=== PATIENT | male | born 1945 | race Caucasian/White ===

== ENCOUNTER 2017-08-07 17:08 | Inpatient (IN) | payer MEDICARE, OTHER ==
[~2017-08-07] VITALS: Ht 188 cm; Wt 121.6 kg
[~2017-08-07 17:08] MED LIST: APIX5TAB PO; ATOR10TA PO; BENA40TA PO; CENTCHW3 PO; DOXA1 PO; ECOT81TA2 PO; HYDR-2768 PO; METF850T PO; METO100T PO; NIAS10004 PO; POTA-267 PO
[2017-08-07 17:30] VITALS: BP 152/84; PULSE 83; RESP 16; TEMP 97.5; O2SAT 96
[2017-08-07 19:30] VITALS: BP 146/96; PULSE 87; RESP 18; O2SAT 99
[2017-08-07] MEDS ORDERED: EMPA1TAB3 PO (20:14)
[2017-08-07] MEDS ORDERED: METO100T PO (20:14)
[2017-08-07] MEDS ORDERED: AMLO5TAB2 PO (20:14)
[2017-08-07] MEDS ORDERED: APIX5TAB PO (20:14)
[2017-08-07] MEDS ORDERED: DOXA1TAB43 PO (20:14)
[2017-08-07] MEDS ORDERED: PANT40TA3 PO (20:14)
[2017-08-07] MEDS ORDERED: HYDR12.56 PO (20:14)
[2017-08-07] MEDS ORDERED: METF850T PO (20:14)
[2017-08-07] MEDS ORDERED: ASPI-516 CHEW (20:14)
[2017-08-07] MEDS ORDERED: BENA40TA PO (20:14)
[2017-08-07] MEDS ORDERED: POTA10TA2 PO (20:14)
[2017-08-07] MEDS ORDERED: ZOLP10TA3 PO (20:14)
[2017-08-07] MEDS ORDERED: ATOR40TA16 PO (20:14)
--- NOTE | 2017-08-07 20:20 | PD ---
HPI Chief Complaint: Bleeding Time Seen by Provider: 19:40 Travel History International Travel<30 days: No Contact w/Intl Traveler<30days: No Traveled to known affect area: No History of Present Illness HPI 71-year-old male presents to the emergency department for complaint of ongoing oozing type bleeding from a cardiac catheterization site to the right groin from 08/04/17. Patient had cardiac ablation by Dr. Ferro due to history of atrial fibrillation. Patient is prescribed and continues to take Eliquis; patient reports he was not instructed to discontinue his Eliquis for the day of his procedure or subsequently. Patient reports he underwent the procedure on Thursday still had ongoing oozing and bleeding on Thursday was monitored for 2 hours with a weight application for direct pressure to the groin site prior to discharge on Thursday and at time of discharge there was no active oozing or bleeding. Patient reports by the time he got home there was some spotting of blood on Thursday evening and family he awakened during the night in the wee hours of morning noticed that there was significant bleeding to his underclothing. Patient states that he applied pressure on and a couple phone calls to the [place] [employer] set up operator and to his local steel die press set up operator office. Patient states he called several times on Thursday and finally this evening at 4 PM he is instructed to come to the emergency room for evaluation. Patient's local steel die press set up operator is out of town. Patient's local steel die press set up operator is Dr. Valencia. Patient has had no fever no chills no nausea no vomiting also denies any dizziness lightheadedness near syncope syncope sweats shortness of breath fatigue and has experienced no chest pain palpitations flank pain or abdominal pain. Patient is continued to take his medications as prescribed. Patient also has history of hypertension dyslipidemia diabetes CAD CABG atrial fibrillation valvular heart disease and reports allergy to contrast dye. [facility] Past Medical History Narrative Medical CAD CABG atrial fibrillation valvular heart disease diabetes hypertension dyslipidemia sleep apnea prior tobaccoism chronic low back pain cardiac catheterization cardiac ablation; occasional alcohol use: Nursing notes reviewed Hx Anticoagulant Therapy: Yes (Eliquis) Cardiac Catheterization: Yes Cardiovascular Problems: Yes (htn on meds, hx of a-fib ,) Coronary Artery Disease: Yes Diabetes: Yes (type 2) Patient Takes Glucophage: Yes Hypertension: Yes Respiratory: Yes (sleep apnea) Influenza Vaccination: Yes Past Surgical History Coronary Artery Bypass Graft: Yes (X3) Social History Alcohol Use: Yes (Daily) Tobacco Use: No Substance Use: No Allergies-Medications (Allergen,Severity, Reaction): Coded Allergies: diatrizoate meglumine (Unverified Allergy, Severe, Chills, fever, 08/07/17) gadobenic acid (Unverified Allergy, Severe, Chills, fever, 08/07/17) gadodiamide (Unverified Allergy, Severe, Chills, fever, 08/07/17) gadoteridol (Unverified Allergy, Severe, Chills, fever, 08/07/17) iodixanol (Unverified Allergy, Severe, Chills, fever, 08/07/17) iohexol (Unverified Allergy, Severe, Chills, fever, 08/07/17) Reported Meds & Prescriptions Reported Meds & Active Scripts Active Reported Zolpidem (Zolpidem Tartrate) 10 Mg Tab 10 Mg PO HS PRN Potassium Chloride ER (Potassium Chloride) 10 Meq Tab 10 Meq PO DAILY Pantoprazole (Pantoprazole Sodium) 40 Mg Tab 40 Mg PO DAILY Metoprolol Tartrate 100 Mg Tab 100 Mg PO DAILY Metformin (Metformin HCl) 850 Mg Tab 850 Mg PO DAILY With a meal Hydrochlorothiazide 12.5 Mg Tab 12.5 Mg PO DAILY Jardiance (Empagliflozin) 25 Mg Tab 25 Mg PO DAILY Doxazosin (Doxazosin Mesylate) 8 Mg Tab 8 Mg PO DAILY Benazepril (Benazepril HCl) 40 Mg Tab 40 Mg PO BID Atorvastatin (Atorvastatin Calcium) 40 Mg Tab 40 Mg PO HS Aspirin 81 Mg Chew 81 Mg CHEW DAILY Eliquis (Apixaban) 5 Mg Tab 5 Mg PO BID Amlodipine (Amlodipine Besylate) 5 Mg Tab 5 Mg PO DAILY Review of Systems General / Constitutional: No: Fever, Chills HENT: No: Headaches, Vertigo, Lightheadedness, Nosebleed, Neck Pain Cardiovascular: No: Chest Pain or Discomfort, Palpitations, Diaphoresis, Syncope, Dyspnea on exertion Respiratory: No: Shortness of Breath, Hemoptysis Gastrointestinal: No: Nausea, Vomiting, Diarrhea, Abdominal Pain, Hematemesis, Hematochezia Genitourinary: No: Urgency, Frequency, Dysuria, Hematuria, Flank Pain Musculoskeletal: Positive: Other (localized ecchymosis right groin), No: Myalgias, Arthralgias, Limited ROM Skin: No Rash, No Lumps Neurologic: No: Weakness, Dizziness, Syncope Psychiatric: No: Anxiety Endocrine: No: Heat Intolerance Hematologic/Lymphatic: Positive: Easy Bruising (localized ecchymosis right groin) Physical Exam Narrative GENERAL: Well-developed well-nourished male in no acute distress no respiratory distress; GCS 15, triagebp: 152/84, hr: 83, rr: 16, o2 sat ra: 96-99%, T: 97.5F SKIN: Warm and dry. HEAD: Normocephalic. EYES: No scleral icterus. No injection or drainage. NECK: Supple, trachea midline. No JVD or lymphadenopathy. CARDIOVASCULAR: Regular rate and rhythm without murmurs, gallops, or rubs. RESPIRATORY: Breath sounds equal bilaterally. No accessory muscle use. GASTROINTESTINAL: Abdomen soft, non-tender, nondistended. MUSCULOSKELETAL: No cyanosis, or edema. Radial and dorsalis pedis pulses 2+ to palpation bilaterally with brisk capillary refill in all digits; right groin ecchymosis with scant fresh blood at the angiocatheter insertion site with fresh thrombus at the site and large area of ecchymosis to the anterior medial aspect of the right proximal thigh. BACK: Nontender without obvious deformity. No CVA tenderness. Data Data Last Documented VS Vital Signs Date Time Temp Pulse Resp B/P (MAP) Pulse Ox O2 Delivery O2 Flow Rate FiO2 08/07/17 19:30 18 99 Room Air 08/07/17 19:30 87 146/96 (113) 08/07/17 17:30 97.5 Orders Orders ^ Saline Lock (08/07/17 20:03) Complete Blood Count With Diff (08/07/17 20:03) Basic Metabolic Panel (Bmp) (08/07/17 20:03) Act Partial Throm Time (Ptt) (08/07/17 20:03) Prothrombin Time / Inr (Pt) (08/07/17 20:03) Us Leg Hematoma/Pseudoaneurysm (08/07/17 ) Ct Abd/Pel W/O Iv Contrast (08/07/17 ) Labs Laboratory Tests Test 08/07/17 20:43 White Blood Count 5.7 TH/MM3 Red Blood Count 4.73 MIL/MM3 Hemoglobin 13.9 GM/DL Hematocrit 42.4 % Mean Corpuscular Volume 89.6 FL Mean Corpuscular Hemoglobin 29.5 PG Mean Corpuscular Hemoglobin Concent 32.9 % Red Cell Distribution Width 13.1 % Platelet Count 161 TH/MM3 Mean Platelet Volume 8.1 FL Neutrophils (%) (Auto) 61.3 % Lymphocytes (%) (Auto) 22.1 % Monocytes (%) (Auto) 13.6 % Eosinophils (%) (Auto) 2.4 % Basophils (%) (Auto) 0.6 % Neutrophils # (Auto) 3.5 TH/MM3 Lymphocytes # (Auto) 1.3 TH/MM3 Monocytes # (Auto) 0.8 TH/MM3 Eosinophils # (Auto) 0.1 TH/MM3 Basophils # (Auto) 0.0 TH/MM3 CBC Comment DIFF FINAL Differential Comment Prothrombin Time 11.5 SEC Prothromb Time International Ratio 1.0 RATIO Activated Partial Thromboplast Time 30.4 SEC Blood Urea Nitrogen 12 MG/DL Creatinine 0.58 MG/DL Random Glucose 138 MG/DL Calcium Level 8.4 MG/DL Sodium Level 141 MEQ/L Potassium Level 3.3 MEQ/L Chloride Level 106 MEQ/L Carbon Dioxide Level 24.9 MEQ/L Anion Gap 10 MEQ/L Estimat Glomerular Filtration Rate 138 ML/MIN [facility] Medical Decision Making Medical Screen Exam Complete: Yes Emergency Medical Condition: Yes Medical Record Reviewed: Yes Interpretation(s) Last Impressions Lower Extremity Ultrasound 08/07/17 0000 Signed Impressions: Service Date/Time: Monday, August 07, 2017 21:49 - CONCLUSION: 1. No flow identified within a pseudoaneurysm. Questionable clotted pseudoaneurysm at right common femoral artery. Ramiro Jones MD Abdomen/Pelvis CT 08/07/17 0000 Signed Impressions: Service Date/Time: Monday, August 07, 2017 20:24 - CONCLUSION: 1. Approximately 4 cm hematoma in the right groin. No extension into the pelvis or retroperitoneum. 2. Small bilateral pleural effusions. 3. Multiple right renal cysts. Mild constipation. No free air or free fluid in the abdomen or pelvis. Ramiro Jones MD CBC & BMP Diagram 08/07/17 20:43 Calcium Level 8.4 L Vital Signs Date Time Temp Pulse Resp B/P (MAP) Pulse Ox O2 Delivery O2 Flow Rate FiO2 08/07/17 19:30 18 99 Room Air 08/07/17 19:30 87 18 146/96 (113) 99 Room Air 08/07/17 17:30 97.5 83 16 152/84 (106) 96 Differential Diagnosis Coagulopathy, anemia, pseudoaneurysm, retroperitoneal bleed, thrombosis, hematoma Narrative Course discussed with Radiologist Dr Jones --rec: US LE and CT a/p w/o contrast @ 23:[address] surgeon [address] Meier 23:30 discussed with [facility] MD Dr Gaitan --for admission Physician Communication Physician Communication @ 23:[address] Meier --admit to medicine w/ consult --will see for angiography Diagnosis Primary Impression: Pseudoaneurysm of femoral artery Admitting Information Admitting Physician Requests: Admit Brenda Cline MD Aug 07, 2017 20:20
[2017-08-07 20:50] LABS: AUTOMATED NEUTROPHIL # 3.5 TH/MM3 (1.8-7.7); BASOPHIL % 0.6 % (0.0-2.0); EOSINOPHIL # 0.1 TH/MM3 (0-0.4); EOSINOPHIL % 2.4 % (0.0-4.0); HEMATOCRIT 42.4 % (39.0-51.0); HEMO FLAGS DIFF FINAL; LYMPH % 22.1 % (9.0-44.0); LYMPHOCYTE # 1.3 TH/MM3 (1.0-4.8); MEAN CELL VOLUME 89.6 FL (80.0-100.0); MEAN CORPUSCULAR HEMOGLOBIN 29.5 PG (27.0-34.0); MEAN CORPUSCULAR HGB CONC 32.9 % (32.0-36.0); MONO % 13.6 % (0.0-8.0); NEUT % 61.3 % (16.0-70.0); PLATELET COUNT 161 TH/MM3 (150-450); RED BLOOD COUNT 4.73 MIL/MM3 (4.50-5.90); RED CELL DISTRIBUTION WIDTH 13.1 % (11.6-17.2); WHITE BLOOD COUNT 5.7 TH/MM3 (4.0-11.0)
[2017-08-07 20:57] LABS: POTASSIUM 3.3 MEQ/L (3.5-5.1)
[2017-08-07 21:00] VITALS: BP 151/82; PULSE 89; RESP 18; O2SAT 95
[2017-08-07 21:00] LABS: BICARBONATE 24.9 MEQ/L (21.0-32.0)
[2017-08-07 21:03] LABS: APTT (PATIENT) 30.4 SEC (24.3-30.1); PROTHROMBIN TIME - PATIENT 11.5 SEC (9.8-11.6)
--- NOTE | 2017-08-07 21:04 | RADRPT ---
EXAM DATE/TIME: 08/07/2017 20:24 [facility] COMPARISON: No previous studies available for comparison. INDICATIONS : Status post cardiac ablation on Thursday. Patient has heavy bleeding from incision in right groin area . ORAL CONTRAST: No oral contrast ingested. RADIATION DOSE: 24.97 CTDIvol (mGy) MEDICAL HISTORY : Cardiovascular disease. Diabetes mellitus type 2. Hypertension. SURGICAL HISTORY : CABG ENCOUNTER: Initial ACUITY: 3 days PAIN SCALE: 0/10 LOCATION: Right pelvis TECHNIQUE: Volumetric scanning of the abdomen and pelvis was performed. Using automated exposure control and ad justment of the mA and/or kV according to patient size, radiation dose was kept as low as reasonably achievable to obtain optimal diagnostic quality images. DICOM format image data is available electro nically for review and comparison. FINDINGS: There is an approximately 4 cm hematoma in the right groin at the site of arterial puncture for cardi ac procedure. There is no extension of hemorrhage cephalad into the pelvis or retroperitoneum. Small bilateral pleural effusions. Minimal basal atelectasis in the lungs. No acute findings in the liver, spleen, adrenals or pancreas. 6.5 cm lower pole right renal cyst. 4.6 cm anterior right renal cyst. Left kidney unremarkable. No pelvic mass or free fluid. Mild constipation. 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 CONCLUSION: 1. Approximately 4 cm hematoma in the right groin. No extension into the pelvis or retroperitoneum. 2. Small bilateral pleural effusions. 3. Multiple right renal cysts. Mild constipation. No free air or free fluid in the abdomen or pelvis. Ramiro Jones MD on August 07, 2017 at 20:57 Board Certified Radiologist. This report was verified electronically.
--- NOTE | 2017-08-07 22:41 | RADRPT ---
EXAM DATE/TIME: 08/07/2017 21:49 [facility] COMPARISON: No previous studies available for comparison. INDICATIONS : Right leg pseudoaneurysm. MEDICAL HISTORY : Diabetes mellitus type 2. HTN. Coronary artery disease. Hyperlipidemia. Sleep apnea. Anticoagulan t therapy, Eliquis. SURGICAL HISTORY : CABG. Cardiac cath. ENCOUNTER: Initial ACUITY: 3 days PAIN SCORE: 0/10 LOCATION: Right leg. AREA EVALUATED: Right groin. FINDINGS: There is no blood flow identified in the right common femoral artery. There is a complex fluid collec tion protruding off the right common femoral artery with no blood flow, possibly clotted pseudoaneury sm. No flow within the pseudoaneurysm is identified. CONCLUSION: 1. No flow identified within a pseudoaneurysm. Questionable clotted pseudoaneurysm at right common fe moral artery. Ramiro Jones MD on August 07, 2017 at 22:36 Board Certified Radiologist. This report was verified electronically.
[2017-08-07 23:00] VITALS: BP 137/73; PULSE 84; RESP 18; O2SAT 96
[2017-08-07] MEDS ORDERED: SENNOSIDES 8.6 MG TAB PO PRN (23:45)
[2017-08-07] MEDS ORDERED: MORPHINE SULFATE 4 MG/ML INJ IV PUSH PRN (23:45)
[2017-08-07] MEDS ORDERED: BISACODYL 10 MG SUPP RECTAL PRN (23:45)
[2017-08-07] MEDS ORDERED: ACETAMINOPHEN 325 MG TAB PO PRN (23:45)
[2017-08-07] MEDS ORDERED: MAGNESIUM HYDROXIDE SUSP 30 ML CUP PO PRN (23:45)
[2017-08-07] MEDS ORDERED: GLUCAGON 1 MG/ML VIAL OTHER PRN (23:45)
[2017-08-07] MEDS ORDERED: LACTULOSE SYRUP 20 GM/30 ML CUP PO PRN (23:45)
[2017-08-07] MEDS ORDERED: DEXTROSE 50% IN WATER 50 ML VIAL(D50) IV PUSH PRN (23:45)
[2017-08-07] MEDS ORDERED: SODIUM CHLORIDE 0.9% FLUSH 10 ML FLUSH IV FLUSH PRN (23:45)
[2017-08-07] MEDS ORDERED: ONDANSETRON HCL 4 MG/2 ML VIAL IVP PRN (23:45)
[2017-08-08] VITALS (12 sets, daily range): BP systolic 123–184; BP diastolic 69–86; PULSE 56–101; RESP 20–22; TEMP 97.4–98.9; O2SAT 94–99
[2017-08-08] MEDS: SODIUM CHLOR 0.9% 1000 ML INJ 1,000 ML IV SCH ×3 (00:29→21:32)
[2017-08-08] MEDS: ZOLPIDEM TARTRATE 10 MG TAB PO PRN ×2 (02:10→23:47)
[2017-08-08] MEDS ORDERED: POTASSIUM CHLORIDE 10 MEQ CONTROLLED RELEASE TAB PO ONE (04:00)
--- NOTE | 2017-08-08 04:49 | HHI.HP ---
[facility] Service [facility] Primary Care Physician Emigdio Ponce MD Admission Diagnosis Pseudoaneurysm RLE/R femoral aa Diagnoses: (1) Pseudoaneurysm of femoral artery Chief Complaint: Right groin bleeding post cardiac cath/ablation Travel History International Travel<30 Days: No Contact w/Intl Traveler <30 Da: No Traveled to Known Affected Are: No History of Present Illness Mr. Last is a 71 y/o male with a history of CAD s/p CABG x 3, T2DM, atrial fibrillation, aortic stenosis, hypertension, hyperlipidemia, obstructive sleep apnea on home CPAP, and chronic low back pain presented to the emergency department in [place] on 08/07/2017 for evaluation of right groin bleeding status post cardiac ablation performed by Dr. Ferro in [place] on 2016. Abdomen/pelvis CT without contrast was performed showing 4 cm hematoma in right groin with no extension into the pelvis or retroperitoneum. Lower extremity ultrasound showed no flow identified within pseudoaneurysm. Questionable clotted pseudoaneurysm at right common femoral artery. Given concern for limb ischemia, the patient was transferred to [facility] [place] for vascular surgery consultation - case was discussed between ER physician Dr. Cline and Dr. Romeo. Patient is seen in his hospital room after transfer from [place]. He states that he had gone to [place] on Friday 08/03 and a NIGHAT was done. He stayed overnight and had the cardiac ablation done on 08/04. He held his Eliquis Thursday. He took it on Thursday night, the night before the procedure. He states that on Thursday, the staple was removed and shortly thereafter he noted some bleeding after getting up to go to the bathroom. A pressure device was applied for 2 hours and he was discharged after hemostasis was achieved. However, morning, he noted some blood in his underwear and it seeped in his underwear all day. He attempted to contact his local kitchen operator and was told to call Dr. Ferro's office since they had performed the procedure. He was unable to reach Dr. Ferro and on Thursday at 4:00, he was told by the triage desk in [place] to go to the local emergency room. He denies any chest pain, shortness of breath, fevers, chills, nausea, vomiting , diarrhea, black or bloody stools, or hematuria. He denies any calf pain. Review of Systems Except as stated in HPI: all other systems reviewed are Neg Past Family Social History Past Medical History Coronary artery disease Atrial fibrillation Valvular heart disease: Aortic stenosis Type 2 Diabetes Mellitus Hypertension Hyperlipidemia Obstructive sleep apnea requiring BiPAP Chronic low back pain Questionable COPD He denies any history of liver disease, hepatitis, kidney disease, DVT, PE, CVA , seizures, thyroid disease, or cancer. . Past Surgical History CABG 3 in 1994 Right shoulder rotator cuff repair Left index finger repair NIGHAT 08/03/2017 Cardiac with ablation 08/04/2017 . Reported Medications Reported Meds & Active Scripts Active Reported Zolpidem (Zolpidem Tartrate) 10 Mg Tab 10 Mg PO HS PRN Potassium Chloride ER (Potassium Chloride) 10 Meq Tab 10 Meq PO DAILY Pantoprazole (Pantoprazole Sodium) 40 Mg Tab 40 Mg PO DAILY Metoprolol Tartrate 100 Mg Tab 100 Mg PO DAILY Metformin (Metformin HCl) 850 Mg Tab 850 Mg PO DAILY With a meal Hydrochlorothiazide 12.5 Mg Tab 12.5 Mg PO DAILY Jardiance (Empagliflozin) 25 Mg Tab 25 Mg PO DAILY Doxazosin (Doxazosin Mesylate) 8 Mg Tab 8 Mg PO DAILY Benazepril (Benazepril HCl) 40 Mg Tab 40 Mg PO BID Atorvastatin (Atorvastatin Calcium) 40 Mg Tab 40 Mg PO HS Aspirin 81 Mg Chew 81 Mg CHEW DAILY Eliquis (Apixaban) 5 Mg Tab 5 Mg PO BID Amlodipine (Amlodipine Besylate) 5 Mg Tab 5 Mg PO DAILY . Allergies: Coded Allergies: diatrizoate meglumine (Unverified Allergy, Severe, Chills, fever, 08/07/17) gadobenic acid (Unverified Allergy, Severe, Chills, fever, 08/07/17) gadodiamide (Unverified Allergy, Severe, Chills, fever, 08/07/17) gadoteridol (Unverified Allergy, Severe, Chills, fever, 08/07/17) iodixanol (Unverified Allergy, Severe, Chills, fever, 08/07/17) iohexol (Unverified Allergy, Severe, Chills, fever, 08/07/17) Active Ordered Medications Current Medications Dextrose (D50w (Vial) Inj) 50 ml UNSCH PRN IV PUSH HYPOGLYCEMIA-SEE COMMENTS; Start 08/07/17 at 23:45 Glucagon (Glucagon Inj) 1 mg UNSCH PRN OTHER HYPOGLYCEMIA-SEE COMMENTS; Start 08/07/17 at 23:45 Insulin Aspart (NovoLOG SUPPLEMENTAL SCALE) 1 ACHS SLIDING SCALE SQ ; Start at 08:00 Sodium Chloride 1,000 ml @ 100 mls/hr Q10H IV Last administered on 08/08/17t 00:29; Start 08/07/17 at 23:39 Sodium Chloride (NS Flush) 2 ml UNSCH PRN IV FLUSH FLUSH AFTER USING IV ACCESS ; Start 08/07/17 at 23:45 Sodium Chloride (NS Flush) 2 ml BID IV FLUSH ; Start 08/08/17 at 09:00 Ondansetron HCl (Zofran Inj) 4 mg Q6H PRN IVP NAUSEA OR VOMITING; Start at 23:45 Acetaminophen (Tylenol) 650 mg Q6H PRN PO FEVER/PAIN SCALE 1 TO 2; Start at 23:45 Acetaminophen/ Hydrocodone Bitart ([place] 5-325 Mg) 1 tab Q4H PRN PO PAIN SCALE 3 TO 5; Start 08/07/17 at 23:45 Morphine Sulfate (Morphine Inj) 2 mg Q3H PRN IV PUSH Pain 6-10; Start 08/07/17 at 23:45 Senna/Docusate Sodium (Marlen-Colace) 1 tab BID PO ; Start 08/08/17 at 09:00 Magnesium Hydroxide (Milk Of Magnesia Liq) 30 ml Q12H PRN PO Mild constipation ; Start 08/07/17 at 23:45 Sennosides (Senokot) 17.2 mg Q12H PRN PO Moderate constipation; Start 08/07/17 at 23:45 Bisacodyl (Dulcolax Supp) 10 mg DAILY PRN RECTAL SEVERE CONSITIPATION; Start 08/07/17 at 23:45 Lactulose (Lactulose Liq) 30 ml DAILY PRN PO SEVERE CONSITIPATION; Start at 23:45 Amlodipine Besylate (Norvasc) 5 mg DAILY PO ; Start 08/08/17 at 09:00 Atorvastatin Calcium (Lipitor) 40 mg HS PO ; Start 08/08/17 at 21:00 Doxazosin Mesylate (Cardura) 8 mg DAILY PO ; Start 08/08/17 at 09:00 Metoprolol Tartrate (Lopressor) 100 mg DAILY PO ; Start 08/08/17 at 09:00 Pantoprazole Sodium (Protonix) 40 mg DAILY PO ; Start 08/08/17 at 09:00 Zolpidem Tartrate (Ambien) 10 mg HS PRN PO INSOMNIA Last administered on t 02:10; Start 08/07/17 at 23:45 Lisinopril (Prinivil) 40 mg BID PO ; Start 08/08/17 at 09:00 . Family History Brother with end-stage renal disease, diabetes mellitus Father with diabetes mellitus, age 92 Mother from complications related to bilateral knee replacement in her 90s Sister with diabetes mellitus . Social History Tobacco: Smoked for 20 years, 1 pack per day, quit in 1981 Alcohol: Former heavy drinking, drinks a couple of drinks about 2 days per week now Illicit Drugs: Denies . Physical Exam Vital Signs Vital Signs Date Time Temp Pulse Resp B/P (MAP) Pulse Ox O2 Delivery O2 Flow Rate FiO2 08/08/17 01:50 97.9 88 22 94 144/74 (97) 08/08/17 01:15 84 18 123/70 (87) 96 08/07/17 23:00 84 18 137/73 (94) 96 Room Air 08/07/17 21:00 89 18 151/82 (105) 95 Room Air 08/07/17 19:30 18 99 Room Air 08/07/17 19:30 87 18 146/96 (113) 99 Room Air 08/07/17 17:30 97.5 83 16 152/84 (106) 96 Physical Exam GENERAL: This is an obese older male patient, in no apparent distress. SKIN: No rashes. Cool and dry. HEAD: Atraumatic. Normocephalic. EYES: No scleral icterus. No injection or drainage. ENT: Nose without bleeding, purulent drainage. NECK: Trachea midline. No JVD. CARDIOVASCULAR: Irregularly irregular with 2/6 systolic murmur best auscultated left sternal border, second IC space. Right dorsalis pedis +2, left dorsalis pedis +1. Bilateral external lower extremities are equally warm to touch. Right groin with large area of ecchymosis and no active bleeding noted. A small amount of dried red blood is noted in right femoral area. RESPIRATORY: Clear to auscultation. Breath sounds equal bilaterally. No wheezes , rales, or rhonchi. GASTROINTESTINAL: Abdomen obese soft, non-tender, nondistended. No guarding. MUSCULOSKELETAL: Extremities without clubbing, cyanosis, or edema. No calf tenderness. NEUROLOGICAL: Awake and alert. Motor and sensory grossly within normal limits. Normal speech. . Laboratory Laboratory Tests Test 08/07/17 20:43 White Blood Count 5.7 Red Blood Count 4.73 Hemoglobin 13.9 Hematocrit 42.4 Mean Corpuscular Volume 89.6 Mean Corpuscular Hemoglobin 29.5 Mean Corpuscular Hemoglobin Concent 32.9 Red Cell Distribution Width 13.1 Platelet Count 161 Mean Platelet Volume 8.1 Neutrophils (%) (Auto) 61.3 Lymphocytes (%) (Auto) 22.1 Monocytes (%) (Auto) 13.6 Eosinophils (%) (Auto) 2.4 Basophils (%) (Auto) 0.6 Neutrophils # (Auto) 3.5 Lymphocytes # (Auto) 1.3 Monocytes # (Auto) 0.8 Eosinophils # (Auto) 0.1 Basophils # (Auto) 0.0 CBC Comment DIFF FINAL Differential Comment Prothrombin Time 11.5 Prothromb Time International Ratio 1.0 Activated Partial Thromboplast Time 30.4 Blood Urea Nitrogen 12 Creatinine 0.58 Random Glucose 138 Calcium Level 8.4 Sodium Level 141 Potassium Level 3.3 Chloride Level 106 Carbon Dioxide Level 24.9 Anion Gap 10 Estimat Glomerular Filtration Rate 138 Result Diagram: 08/07/17204208/07/172042 Imaging Last Impressions Lower Extremity Ultrasound 08/07/17 0000 Signed Impressions: Service Date/Time: Monday, August 07, 2017 21:49 - CONCLUSION: 1. No flow identified within a pseudoaneurysm. Questionable clotted pseudoaneurysm at right common femoral artery. Ramiro Jones MD Abdomen/Pelvis CT 08/07/17 0000 Signed Impressions: Service Date/Time: Monday, August 07, 2017 20:24 - CONCLUSION: 1. Approximately 4 cm hematoma in the right groin. No extension into the pelvis or retroperitoneum. 2. Small bilateral pleural effusions. 3. Multiple right renal cysts. Mild constipation. No free air or free fluid in the abdomen or pelvis. Ramiro Jones MD . Caprini VTE Risk Assessment Caprini VTE Risk Assessment: Mod/High Risk (score >= 2) Caprini Risk Assessment Model Point Value = 1 Point Value = 2 Point Value = 3 Point Value = 5 Age 41-60 Minor surgery BMI > 25 kg/m2 Swollen legs Varicose veins or History of unexplained or recurrent spontaneous Oral contraceptives or hormone replacement Sepsis (< 1 month) Serious lung disease, including pneumonia (< 1 month) Abnormal pulmonary function Acute myocardial infarction Congestive heart failure (< 1 month) History of inflammatory bowel disease Medical patient at bed rest Age 61-74 Arthroscopic surgery Major open surgery (> 45 min) Laparoscopic surgery (> 45 min) Malignancy Confined to bed (> 72 hours) Immobilizing plaster cast Central venous access Age >= 75 History of VTE Family history of VTE Factor V Leiden Prothrombin [id number] Lupus anticoagulant Anticardiolipin antibodies Elevated serum homocysteine Heparin-induced thrombocytopenia Other congenital or acquired thrombophilia Stroke (< 1 month) Elective arthroplasty Hip, pelvis, or leg fracture Acute spinal cord injury (< 1 month) Prophylaxis Regimen Total Risk Factor Score Risk Level Prophylaxis Regimen 0-1 Low Early ambulation 2 Moderate Order ONE of the following: *Sequential Compression Device (SCD) *Heparin 5000 units SQ BID 3-4 Higher Order ONE of the following medications: *Heparin 5000 units SQ TID *Enoxaparin/Lovenox 40 mg SQ daily (WT < 150 kg, CrCl > 30 mL/min) *Enoxaparin/Lovenox 30 mg SQ daily (WT < 150 kg, CrCl > 10-29 mL/min) *Enoxaparin/Lovenox 30 mg SQ BID (WT < 150 kg, CrCl > 30 mL/min) AND/OR *Sequential Compression Device (SCD) 5 or more Highest Order ONE of the following medications: *Heparin 5000 units SQ TID (Preferred with Epidurals) *Enoxaparin/Lovenox 40 mg SQ daily (WT < 150 kg, CrCl > 30 mL/min) *Enoxaparin/Lovenox 30 mg SQ daily (WT < 150 kg, CrCl > 10-29 mL/min) *Enoxaparin/Lovenox 30 mg SQ BID (WT < 150 kg, CrCl > 30 mL/min) AND *Sequential Compression Device (SCD) Assessment and Plan Problem List: (1) Pseudoaneurysm of femoral artery ICD Code: I72.4 - Aneurysm of artery of lower extremity Status: Acute (2) Atrial fibrillation ICD Code: I48.91 - Unspecified atrial fibrillation (3) Hypokalemia ICD Code: E87.6 - Hypokalemia (4) Hypertension ICD Code: I10 - Essential (primary) hypertension Status: Chronic (5) Hyperlipidemia ICD Code: E78.5 - Hyperlipidemia, unspecified Status: Chronic (6) Type 2 diabetes mellitus ICD Code: E11.9 - Type 2 diabetes mellitus without complications Status: Chronic Assessment and Plan Mr. Last is a 71 y/o male with a history of CAD s/p CABG x 3, T2DM, atrial fibrillation, aortic stenosis, hypertension, hyperlipidemia, obstructive sleep apnea on home CPAP, and chronic low back pain presented to the emergency department in [place] on 08/07/2017 for evaluation of right groin bleeding status post cardiac ablation performed by Dr. Ferro in [place] on 2016. Abdomen/pelvis CT without contrast was performed showing 4 cm hematoma in right groin with no extension into the pelvis or retroperitoneum. Lower extremity ultrasound showed no flow identified within pseudoaneurysm. Questionable clotted pseudoaneurysm at right common femoral artery. Given concern for limb ischemia, the patient was transferred to [facility] [place] for vascular surgery consultation - case was discussed between ER physician Dr. Cline and Dr. Romeo. Pseudoaneurysm of the femoral artery - Consult vascular surgery - Dr. Katz's assistance is appreciated - right lower extremity DP pulse easily palpable, extremity warm - Bedrest - H&H 13.9/42.4 - monitor - By mouth Tylenol, [place], and IV morphine as needed for pain based on pain level score Atrial fibrillation persisting despite recent ablation - Consult cardiology - Continue home metoprolol - Continuous cardiac telemetry to monitor for arrhythmia Hypokalemia - Potassium 3.3 on admission - orally replaced - Recheck potassium with CMP in a.m. and follow results and replace as indicated Hypertension - Continue home Cardura, amlodipine, and lisinopril - Monitor blood pressure trends and adjust treatments if indicated Hyperlipidemia - Continue home statin therapy Type 2 Diabetes Mellitus - Hold home by mouth medications: Metformin and Jardiance - Accu-Cheks before meals and at bedtime with low-dose NovoLog sliding scale coverage - Hypoglycemia protocol - Monitor trends and blood glucose readings and adjust treatments as indicated . Discussed Condition With Dr. Gaitan, patient, and RN Physician Certification 2 Midnight Certification Type: Admission for Inpatient Services Order for Inpatient Services The services are ordered in accordance with Medicare regulations or non- Medicare payer requirements, as applicable. In the case of services not specified as inpatient-only, they are appropriately provided as inpatient services in accordance with the 2-midnight benchmark. Estimated LOS (days): 3 days is the estimated time the patient will need to remain in the hospital, assuming treatment plan goals are met and no additional complications. Post-Hospital Plan: Home Melly Willis Aug 08, 2017 04:49
[2017-08-08] MEDS: ACETAMINOPHEN/HYDROcodone 325 MG/5 MG TAB PO PRN ×2 (06:13→23:37)
[2017-08-08] MEDS: INSULIN ASPART SUPPLEMENTAL SCALE SQ SCH ×4 (08:00→21:00)
[2017-08-08 08:22] LABS: AUTOMATED NEUTROPHIL # 4.2 TH/MM3 (1.8-7.7); BASOPHIL % 0.6 % (0.0-2.0); EOSINOPHIL # 0.2 TH/MM3 (0-0.4); EOSINOPHIL % 2.3 % (0.0-4.0); HEMO FLAGS DIFF FINAL; LYMPH % 23.3 % (9.0-44.0); LYMPHOCYTE # 1.6 TH/MM3 (1.0-4.8); MEAN CELL VOLUME 90.1 FL (80.0-100.0); MEAN CORPUSCULAR HEMOGLOBIN 30.7 PG (27.0-34.0); MEAN CORPUSCULAR HGB CONC 34.1 % (32.0-36.0); NEUT % 61.8 % (16.0-70.0); PLATELET COUNT 160 TH/MM3 (150-450); RED BLOOD COUNT 4.55 MIL/MM3 (4.50-5.90); WHITE BLOOD COUNT 6.8 TH/MM3 (4.0-11.0)
[2017-08-08 08:50] LABS: ANION GAP 11 MEQ/L (5-15); BLOOD UREA NITROGEN 11 MG/DL (7-18); CHLORIDE 105 MEQ/L (98-107); GLOMERULAR FILTRATION RATE 123 ML/MIN (>89); POTASSIUM 3.3 MEQ/L (3.5-5.1); SODIUM (NA) 139 MEQ/L (136-145)
[2017-08-08 08:51] LABS: ALT (GPT) 18 U/L (12-78); AST (GOT) 15 U/L (15-37)
[2017-08-08 08:53] LABS: ALKALINE PHOSPHATASE 156 U/L (45-117); TOTAL BILIRUBIN ADULT 1.2 MG/DL (0.2-1.0)
[2017-08-08] MEDS: DOCUSATE SODIUM 50 MG/SENNA 8.6 MG TAB PO SCH ×2 (09:17→21:31)
[2017-08-08] MEDS: PANTOPRAZOLE SOD 40 MG DELAYED RELEASE TAB PO SCH (09:17)
[2017-08-08] MEDS: DOXAZOSIN MESYLATE 4 MG TAB PO SCH (09:17)
[2017-08-08] MEDS: amLODIPine BESYLATE 5 MG TAB PO SCH (09:17)
[2017-08-08] MEDS: LISINOPRIL 20 MG TAB PO SCH ×2 (09:17→21:31)
[2017-08-08] MEDS: METOPROLOL TARTRATE 100 MG TAB PO SCH (09:17)
[2017-08-08] MEDS: SODIUM CHLORIDE 0.9% FLUSH 10 ML FLUSH IV FLUSH SCH ×2 (09:18→21:00)
--- NOTE | 2017-08-08 13:42 | PD.CAR.PN ---
CVT Progress Note Subjective/Hospital Course: 71-year-old male status post catheterization and ablation through the right femoral artery in an institution in [place] on 04 of August Patient was discharged the same day and noticed the large amount of blood on his gown the next day and the day after finally presented to the emergency room at [place] late last night. I discussed this with the ER physician Patient has ultrasonographic occlusion of right common femoral artery with distal reconstitution There is a large hematoma in the right groin but no pseudoaneurysm Most likely patient had a Perclose device placed after the catheterization and at that time the back wall of the vessel was caught occluding the entire vessel CTA with runoff has been ordered and depending on these findings patient will most likely require surgery to restore normal blood flow to the leg At this point patient has mild ischemia of the right leg somewhat decreased and delayed capillary refill refill and weaker Doppler signal on the right than on the left I discussed this at length with patient and will intervene based on CTA findings Eliquis will need to be stopped temporarily Full consult dictated Objective: Vital Signs Date Time Temp Pulse Resp B/P (MAP) Pulse Ox O2 Delivery O2 Flow Rate FiO2 08/08/17 12:00 98.9 89 20 150/77 (101) 97 08/08/17 08:05 97 08/08/17 08:00 98.9 99 20 157/82 (107) 96 08/08/17 08:00 Room Air 08/08/17 06:23 Room Air 08/08/17 04:07 101 08/08/17 04:00 98.1 99 21 130/69 (89) 94 08/08/17 01:50 97.9 88 22 94 144/74 (97) 08/08/17 01:15 84 18 123/70 (87) 96 08/07/17 23:00 84 18 137/73 (94) 96 Room Air 08/07/17 21:00 89 18 151/82 (105) 95 Room Air 08/07/17 19:30 18 99 Room Air 08/07/17 19:30 87 18 146/96 (113) 99 Room Air 08/07/17 17:30 97.5 83 16 152/84 (106) 96 Labs: Laboratory Tests Test 08/08/17 07:51 White Blood Count 6.8 TH/MM3 (4.0-11.0) Red Blood Count 4.55 MIL/MM3 (4.50-5.90) Hemoglobin 14.0 GM/DL (13.0-17.0) Hematocrit 41.0 % (39.0-51.0) Mean Corpuscular Volume 90.1 FL (80.0-100.0) Mean Corpuscular Hemoglobin 30.7 PG (27.0-34.0) Mean Corpuscular Hemoglobin Concent 34.1 % (32.0-36.0) Red Cell Distribution Width 14.0 % (11.6-17.2) Platelet Count 160 TH/MM3 (150-450) Mean Platelet Volume 8.8 FL (7.0-11.0) Neutrophils (%) (Auto) 61.8 % (16.0-70.0) Lymphocytes (%) (Auto) 23.3 % (9.0-44.0) Monocytes (%) (Auto) 12.0 % (0.0-8.0) Eosinophils (%) (Auto) 2.3 % (0.0-4.0) Basophils (%) (Auto) 0.6 % (0.0-2.0) Neutrophils # (Auto) 4.2 TH/MM3 (1.8-7.7) Lymphocytes # (Auto) 1.6 TH/MM3 (1.0-4.8) Monocytes # (Auto) 0.8 TH/MM3 (0-0.9) Eosinophils # (Auto) 0.2 TH/MM3 (0-0.4) Basophils # (Auto) 0.0 TH/MM3 (0-0.2) CBC Comment DIFF FINAL Differential Comment Blood Urea Nitrogen 11 MG/DL (7-18) Creatinine 0.64 MG/DL (0.60-1.30) Random Glucose 145 MG/DL (74-106) Total Protein 7.5 GM/DL (6.4-8.2) Albumin 3.4 GM/DL (3.4-5.0) Calcium Level 8.4 MG/DL (8.5-10.1) Alkaline Phosphatase 156 U/L (45-117) Aspartate Amino Transf (AST/SGOT) 15 U/L (15-37) Alanine Aminotransferase (ALT/SGPT) 18 U/L (12-78) Total Bilirubin 1.2 MG/DL (0.2-1.0) Sodium Level 139 MEQ/L (136-145) Potassium Level 3.3 MEQ/L (3.5-5.1) Chloride Level 105 MEQ/L (98-107) Carbon Dioxide Level 23.0 MEQ/L (21.0-32.0) Anion Gap 11 MEQ/L (5-15) Estimat Glomerular Filtration Rate 123 ML/MIN (>89) Result Diagram: 08/08/17 0751 08/08/17 0751 Vahid Romeo MD Aug 08, 2017 13:42
--- NOTE | 2017-08-08 14:19 | MB ---
cc: CCList DATE OF CONSULTATION: 08/08/2017 REASON FOR CONSULTATION: Occlusion of the right common femoral artery, an iatrogenic mishap during the cardiac catheterization. HISTORY OF PRESENT ILLNESS: This 71-year-old male with known coronary artery disease and chronic atrial fibrillation presented to an institution in [place] where he underwent ablation allegedly on the 04 of August. The patient was discharged the next day and noted bleeding on his gown that evening. This continued through the next two days. The patient was bleeding fairly significantly from the groin and then started noticing a bulge in his right groin and some tingling in his foot. The patient presented to the [facility] Emergency Room last night. He was worked up and I was called by Dr. Cline to discuss the patient. The ultrasonography revealed a hematoma of the right groin without pseudoaneurysm but with complete occlusion of the right common femoral artery. Nonetheless, the patient had distal perfusion to the remainder of the leg and the foot. The patient was transferred to [facility] for further care. PAST MEDICAL HISTORY: 1. Hypertension. 2. Hyperlipidemia. 3. Coronary artery disease. 4. Moderate obesity. 5. Sleep apnea. 6. COPD. 7. Questionable aortic stenosis. PAST SURGICAL HISTORY: 1. Coronary artery bypass surgery x3 jumps. Currently as above-noted cardiac ablation. The patient remains in slow atrial fibrillation. 2. Right shoulder rotator cuff repair. SOCIAL HISTORY: He smokes one pack a day of cigarettes and continued that for most of his adult life uninterrupted. He drinks socially. MEDICATIONS: His medications are multiple and can be found on the chart and include Eliquis. ALLERGIES: IOHEXOL; HOWEVER, THE PATIENT DID HAVE CHILLS AND FEVER, WHICH IS VERY UNUSUAL FOR HE HAD CONTRAST JUST THE OTHER DAY. PHYSICAL EXAMINATION: GENERAL: The physical examination reveals a 71-year-old male. HEAD, EYES, EARS, NOSE, THROAT: Normocephalic. No trauma to the head. Pupils equal and reactive. Extraocular muscles intact. NECK: The neck is supple. Bilateral carotid pulses. Bilateral carotid bruits. CHEST: Bilateral breath sounds decreased over both lung elliott consistent with a moderate degree of COPD. The patient is also somewhat barrel-chested, which is consistent with the same (it should be noted that COPD was mentioned in another physical exam with a question ishmael, but there is no question in my mind based on my physical exam that the patient does have it). HEART: Irregular rhythm. The patient is in slow atrial fibrillation with rate about 80 to 85. ABDOMEN: Abdomen soft and somewhat distended and moderately obese. Active bowel sounds. No rebound. No guarding. No masses. EXTREMITIES: The patient has weak palpable femoral pulse on the right. He has a weak palpable femoral pulse on the left. There is a Dopplerable popliteal pulse bilateral and then doppler left dorsalis pedis and posterior tibial. On the right, the patient has palpable dorsalis pedis. The posterior tibial is very weak by Doppler. Capillary refill is delayed bilateral. Elevation pallor and dependent rubor both feet. There is a large hematoma in the right groin with bruising going assisted all the way down the thigh medially. NEUROLOGICAL EXAMINATION: The patient is fully intact. IMPRESSION AND RECOMMENDATIONS: This gentleman has had an unfortunate iatrogenic problem post cardiac catheterization. This occurs in about 5% to 8% of patients, either in the form of bleeding, hematoma formation or sometimes vascular occlusion. In this particular situation, the patient has suffered possibly an occlusion of the femoral artery when the Perclose device caught the back wall of the vessel. The distal pulses however do not indicate this and it might be the ultrasound reading and positioning is responsible for the finding. Based on this, the patient will have a CTA and then we will go from there. Considering the patient has reasonable flow to his leg with collateral flow, this is not a surgical emergency but clearly has to be addressed because it will get worse. Thank you very much for the referral. I will continue to follow the patient. I will take him off the Eliquis temporarily and then he will likely need to go to the operating room based on the CTA findings. Vahid LI /1:42 PM /2:03 PM IBIS
[2017-08-08] MEDS: predniSONE 50 MG TAB PO SCH ×2 (14:30→21:31)
[2017-08-08] MEDS ORDERED: diphenhydrAMINE HCL 50 MG CAP PO ONE (14:30)
--- NOTE | 2017-08-08 15:41 | MB ---
cc: ISAEL HDZ M.D., BARTON G. DO DATE OF CONSULTATION: 08/08/2017. IMPRESSIONS: 1. Acute arterial occlusion right groin likely iatrogenic possible complication of Perclose device. 2. Recent atrial fibrillation ablation. 3. Obesity. 4. Diabetes without obvious target organ involvement. 5. 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 6. Hypertension. 7. Atherosclerotic heart disease. 8. History of three-vessel coronary bypass grafting surgery [facility] twenty years ago. Target vessels unknown. Left ventricular function unknown. 9. Dyslipidemia. 10. Obstructive sleep apnea. 11. Chronic low back pain. RECOMMENDATIONS: 1. Hold Eliquis. 2. The patient will need to be bridged if he has had a recent ablation, probably would start Lovenox 100 milligrams subcutaneous q. 12 hours Thursday. The patient will need vascular surgery intervention to re-establish patency of the right common femoral artery. CLINICAL DATA: Mr. Lindsay is a 71-year-old male who had a recent ablation apparently at [facility] in [place]. The ablation apparently was successful. The day after, he noticed some blood on his clothes. He then developed a hematoma. Noninvasive vascular evaluation has been performed. The patient has an acute arterial occlusion of the right common femoral artery. He has a history of atherosclerotic heart disease as noted above. He has a history of coronary bypass grafting surgery. There is no history of congestive heart failure. No history of ventricular arrhythmias. He has had no recent anginal symptoms. He has significant risk factors including hypertension and dyslipidemia. He does not smoke. He does have diabetes. He has no history of seizure, stroke or TIA. There is a history questionable history of COPD and obstructive sleep apnea. There is no history of bleeding complications from Eliquis. No history of peptic ulcer disease or reflux. No history of liver, gallbladder or kidney disease. No history of thyroid disease. PAST SURGICAL HISTORY: His surgical history includes: 1. Coronary bypass grafting surgery. 2. Right shoulder surgery. 3. Transesophageal echo was performed before his ablation. MEDICATIONS: His medications prior to admission include: 1. Ambien. 2. Potassium chloride. 3. Pantoprazole. 4. Metoprolol 100 milligrams daily. 5. Metformin 850 once daily. 6. Hydrochlorothiazide 12.5 daily. 7. Jardiance 25 daily. 8. Doxazosin 8 milligrams daily. 9. Benazepril 40 twice a day. 10. Atorvastatin 40 daily. 11. Aspirin 81 daily. 12. Eliquis 5 twice a day. 13. Amlodipine 5 milligrams daily. REVIEW OF SYSTEMS: He has had no recent syncope. He has had no dizzy spells. He has had no chest discomfort or unusual shortness of breath but is somewhat sedentary. He does have chronic low back pain. He denies currently having pain in his right groin or his right foot. He has been seen by vascular surgery and it apparently reconstitutes via pelvic collaterals. PHYSICAL EXAMINATION: GENERAL: The physical exam at this time demonstrates an alert oriented male sitting up in bed. Denies any complaints. VITAL SIGNS: He appears to be in a regular rate and rhythm. Blood pressure is 157/82, heart rate is 80. HEAD, EYES, EARS, NOSE, THROAT: Exam anicteric sclerae. NECK: Jugular venous pressure is normal. There are no bruits. LUNGS: He has clear lung elliott. CARDIAC: Cardiac exam reveals regular rate and rhythm. There is a 2/6 blowing holosystolic murmur consistent with mitral regurgitation. No gallops are noted. EXTREMITIES: Free of cyanosis, clubbing, edema. Cannot feel a pulse in his right foot and circulation is definitely decreased. Capillary return is fair. Motor and sensory functions are preserved. EKGS: A 12-lead electrocardiogram on admission demonstrates atrial fibrillation, poor R-wave progression, no significant S-T-T changes noted. LABORATORY EVALUATION: On admission, lytes 139, 3.3, 105, 23, BUN 11, creatinine 0.6. Transaminases are normal. Random glucose 146. White cell count 6800, hematocrit 41%, platelet count 160,000. Noninvasive vascular study demonstrates no flow in the right common femoral artery with a hematoma / clotted pseudoaneurysm. DISCUSSION: This is a 71-year-old male with acute arterial occlusion after recent ablation. RECOMMENDATIONS: Recommendations are as noted above. Unfortunately the patient is back in atrial fibrillation. Will not start antiarrhythmic therapy at this point in time as his rate appears to be relatively controlled. The patient will need vascular surgery intervention. DO LINDSEY Arguello/DARELL /3:03 PM /3:23 PM
--- NOTE | 2017-08-08 17:39 | RADRPT ---
EXAM DATE/TIME: 08/08/2017 16:46 [facility] COMPARISON: No previous studies available for comparison. EXTERNAL COMPARISON : [facility], US CAROTID ARTERIES, May 13, 2012 INDICATIONS : Bruit. MEDICAL HISTORY : Hypertension. Coronary artery disease. Anticoagulant therapy. Hyperlipidemia. Sleep apnea. Diabet es. SURGICAL HISTORY : CABG. Right shoulder surgery. ENCOUNTER: Initial ACUITY: 1 day PAIN SCORE: 0/10 LOCATION: Bilateral neck PEAK SYSTOLIC VELOCITIES (cm/sec): ICA/CCA RATIO: Right: 1.9 Left: 1.7 ICA: Right: 102.3 Left: 100.0 CCA: Right: 52.9 Left: 59.4 ECA: Right: 135.8 Left: 88.7 VERTEBRAL: Right: 40.0 antegrade Left: 39.2 antegrade Elevated flow velocities and ICA/CCA ratios have been found to correlate with increased degrees of vessel stenosis, calculated as percentage of diameter relative to a normal segment of distal ICA/CCA FINDINGS: RIGHT CAROTID: Mild plaque extending from the bulb to the proximal internal carotid artery. No significant stenosis is visualized. The waveforms are within normal limits. LEFT CAROTID: Mild plaque extending from the bulb to the proximal internal carotid artery. No significant stenosis is visualized. The waveforms are within normal limits. VERTEBRAL ARTERIES: Antegrade flow is seen in both vertebral arteries. MISCELLANEOUS: None. CONCLUSION: 1. Mild bilateral carotid plaque without significant flow-limiting stenosis. 2. Antegrade vertebral artery flow bilaterally. Rafi Dillard MD on August 08, 2017 at 17:35 Board Certified Radiologist. This report was verified electronically.
[2017-08-08] MEDS ORDERED: predniSONE 50 MG TAB PO ONE (20:00)
[2017-08-08] MEDS: ATORVASTATIN 40 MG TAB PO SCH (21:31)
[2017-08-09] VITALS (10 sets, daily range): BP systolic 110–149; BP diastolic 59–92; PULSE 68–118; RESP 17–20; TEMP 97.2–98.3; O2SAT 94–97
[2017-08-09] MEDS: predniSONE 50 MG TAB PO SCH (01:22)
[2017-08-09] MEDS ORDERED: predniSONE 50 MG TAB PO ONE ×2 (02:00→08:00)
[2017-08-09] MEDS: SODIUM CHLOR 0.9% 1000 ML INJ 1,000 ML IV SCH ×2 (06:10→21:47)
[2017-08-09] MEDS ORDERED: diphenhydrAMINE HCL 50 MG CAP PO ONE (08:00)
[2017-08-09] MEDS: INSULIN ASPART SUPPLEMENTAL SCALE SQ SCH ×4 (08:00→21:00)
[2017-08-09] MEDS: SODIUM CHLORIDE 0.9% FLUSH 10 ML FLUSH IV FLUSH SCH ×2 (09:00→21:42)
--- NOTE | 2017-08-09 09:01 | HHI.PR ---
Subjective Remarks Patient in nad. No fever or chills. Patient in bed appears in nad. Says he has constipation. Says eh takes Miralax at home and it helps . No n/v. No fever or chills. Has intermittent chest pain starting on his left shoulder and radiating to the right shoulder across his chest . No diaphoresis or nausea. No sob. Says his Hr is also elevated at times but was told will experience this symptoms after the ablation. No pain in his legs, Objective Vitals Vital Signs Date Time Temp Pulse Resp B/P (MAP) Pulse Ox O2 Delivery O2 Flow Rate FiO2 08/09/17 04:12 103 08/09/17 04:00 98.3 107 20 149/92 (111) 95 08/09/17 00:02 96 08/09/17 00:00 97.7 68 20 97 08/08/17 23:44 158/78 (104) 08/08/17 21:39 Room Air 08/08/17 20:00 97.9 89 22 136/85 (102) 95 08/08/17 19:55 91 08/08/17 16:14 91 08/08/17 16:00 97.5 93 20 138/77 (97) 96 08/08/17 12:00 98.9 89 20 150/77 (101) 97 08/08/17 12:00 89 I/O 08/08/17 08/08/17 08/08/17 08/09/17 08/09/17 08/09/17 07:00 15:00 23:00 07:00 15:00 23:00 Intake Total 497 ml 720 ml 1564 ml Output Total 500 ml 1600 ml Balance -3 ml -880 ml 1564 ml Intake Oral 280 ml 720 ml 720 ml IV Total 217 ml 844 ml Output Urine Total 500 ml 1600 ml # Voids 3 # Bowel Movements 0 Result Diagram: 08/08/17 0751 08/08/17 0751 Imaging Last Impressions Carotid Artery Ultrasound 08/08/17 0000 Signed Impressions: Service Date/Time: Tuesday, August 08, 2017 16:46 - CONCLUSION: 1. Mild bilateral carotid plaque without significant flow-limiting stenosis. 2. Antegrade vertebral artery flow bilaterally. Rafi Dillard MD Lower Extremity Ultrasound 08/07/17 0000 Signed Impressions: Service Date/Time: Monday, August 07, 2017 21:49 - CONCLUSION: 1. No flow identified within a pseudoaneurysm. Questionable clotted pseudoaneurysm at right common femoral artery. Ramiro Jones MD Abdomen/Pelvis CT 08/07/17 0000 Signed Impressions: Service Date/Time: Monday, August 07, 2017 20:24 - CONCLUSION: 1. Approximately 4 cm hematoma in the right groin. No extension into the pelvis or retroperitoneum. 2. Small bilateral pleural effusions. 3. Multiple right renal cysts. Mild constipation. No free air or free fluid in the abdomen or pelvis. Ramiro Jones MD Objective Remarks GENERAL: This is an obese older male patient, in no apparent distress. CARDIOVASCULAR: Irregularly irregular with 2/6 systolic murmur best auscultated left sternal border, second IC space. Right dorsalis pedis +2, left dorsalis pedis +1. Bilateral external lower extremities are equally warm to touch. Right groin with large area of ecchymosis and no active bleeding noted. A small amount of dried red blood is noted in right femoral area. RESPIRATORY: Clear to auscultation. Breath sounds equal bilaterally. No wheezes , rales, or rhonchi. GASTROINTESTINAL: Abdomen obese soft, non-tender, nondistended. No guarding. MUSCULOSKELETAL: Extremities without clubbing, cyanosis, or edema. No calf tenderness. NEUROLOGICAL: Awake and alert. Motor and sensory grossly within normal limits. Normal speech. A/P Problem List: (1) Pseudoaneurysm of femoral artery ICD Code: I72.4 - Aneurysm of artery of lower extremity Status: Acute (2) Atrial fibrillation ICD Code: I48.91 - Unspecified atrial fibrillation (3) Hypokalemia ICD Code: E87.6 - Hypokalemia (4) Hypertension ICD Code: I10 - Essential (primary) hypertension Status: Chronic (5) Hyperlipidemia ICD Code: E78.5 - Hyperlipidemia, unspecified Status: Chronic (6) Type 2 diabetes mellitus ICD Code: E11.9 - Type 2 diabetes mellitus without complications Status: Chronic Assessment and Plan Mr. Last is a 71 y/o male with a history of CAD s/p CABG x 3, T2DM, atrial fibrillation, aortic stenosis, hypertension, hyperlipidemia, obstructive sleep apnea on home CPAP, and chronic low back pain presented to the emergency department in [place] on 08/07/2017 for evaluation of right groin bleeding status post cardiac ablation performed by Dr. Ferro in [place] on 2016. Abdomen/pelvis CT without contrast was performed showing 4 cm hematoma in right groin with no extension into the pelvis or retroperitoneum. Lower extremity ultrasound showed no flow identified within pseudoaneurysm. Questionable clotted pseudoaneurysm at right common femoral artery. Given concern for limb ischemia, the patient was transferred to [facility] [place] for vascular surgery consultation - case was discussed between ER physician Dr. Cline and Dr. Romeo. Pseudoaneurysm of the femoral artery - Consult vascular surgery - Dr. Romeo assistance is appreciated. S/P CTA Aorta with run off, patient is pretreated as patient with allergy to contrast , and tolerated well. - right lower extremity DP pulse easily palpable, extremity warm - Bedrest - H&H 13.9/42.4 - monitor - By mouth Tylenol, Partridge, and IV morphine as needed for pain based on pain level score Atrial fibrillation persisting despite recent ablation - Consult cardiology, appreciate recommendations - increase home metoprolol as patient with elevated BP and Afib with rvr , monitor on telemetry - Continuous cardiac telemetry to monitor for arrhythmia Hypokalemia - Potassium 3.3 on admission - orally replaced. Monitor and replace as need Keep K > 4 and mag> 2. - Recheck potassium with CMP in a.m. and follow results and replace as indicated. Monitor mag level as well and replace as need. Hypertension - Continue home Cardura, amlodipine, and lisinopril - Monitor blood pressure trends and adjust treatments if indicated Hyperlipidemia - Continue home statin therapy Type 2 Diabetes Mellitus - Hold home by mouth medications: Metformin and Jardiance - Accu-Cheks before meals and at bedtime with low-dose NovoLog sliding scale coverage - Hypoglycemia protocol - Monitor trends and blood glucose readings and adjust treatments as indicated Constipation: Bowel regimen add miralax as patient is taking it at home. Discussed Condition With Patient, nurse, family at bedside Marlen Hernández MD Aug 09, 2017 09:01
[2017-08-09] MEDS: amLODIPine BESYLATE 5 MG TAB PO SCH (10:30)
[2017-08-09] MEDS: PANTOPRAZOLE SOD 40 MG DELAYED RELEASE TAB PO SCH (10:30)
[2017-08-09] MEDS: ENOXAPARIN SODIUM 100 MG/ML SYRINGE SQ SCH ×2 (10:30→21:41)
[2017-08-09] MEDS: METOPROLOL TARTRATE 100 MG TAB PO SCH (10:31)
[2017-08-09] MEDS: DOXAZOSIN MESYLATE 4 MG TAB PO SCH (10:31)
[2017-08-09] MEDS: DOCUSATE SODIUM 50 MG/SENNA 8.6 MG TAB PO SCH ×2 (10:31→21:42)
[2017-08-09] MEDS: LISINOPRIL 20 MG TAB PO SCH ×2 (10:31→21:42)
--- NOTE | 2017-08-09 10:45 | PD.CAR.PN ---
CVT Progress Note Subjective/Hospital Course: 71-year-old male status post catheterization and ablation through the right femoral artery in an institution in [place] on 04 of August Patient was discharged the same day and noticed the large amount of blood on his gown the next day and the day after finally presented to the emergency room at [place] late last night. I discussed this with the ER physician Patient has ultrasonographic occlusion of right common femoral artery with distal reconstitution There is a large hematoma in the right groin but no pseudoaneurysm Most likely patient had a Perclose device placed after the catheterization and at that time the back wall of the vessel was caught occluding the entire vessel CTA with runoff has been ordered and depending on these findings patient will most likely require surgery to restore normal blood flow to the leg At this point patient has mild ischemia of the right leg somewhat decreased and delayed capillary refill refill and weaker Doppler signal on the right than on the left I discussed this at length with patient and will intervene based on CTA findings Eliquis will need to be stopped temporarily Full consult dictated 08/09/17 Patient doing well at this time He has collateral perfusion to the right foot and lower leg Slight decrease in capillary refill elevation pallor not noted on the left leg Patient awaiting CTA with runoff which should visualize the areas of occlusion as well as inflow and outflow abnormalities if any existing Based on this will plan surgery for tomorrow Awaiting CTA Objective: Vital Signs Date Time Temp Pulse Resp B/P (MAP) Pulse Ox O2 Delivery O2 Flow Rate FiO2 08/09/17 04:12 103 08/09/17 04:00 98.3 107 20 149/92 (111) 95 08/09/17 00:02 96 08/09/17 00:00 97.7 68 20 97 08/08/17 23:44 158/78 (104) 08/08/17 21:39 Room Air 08/08/17 20:00 97.9 89 22 136/85 (102) 95 08/08/17 19:55 91 08/08/17 16:14 91 08/08/17 16:00 97.5 93 20 138/77 (97) 96 08/08/17 12:00 98.9 89 20 150/77 (101) 97 08/08/17 12:00 89 Result Diagram: 08/08/17 0751 08/08/17 0751 Vahid Romeo MD Aug 09, 2017 10:45
[2017-08-09] MEDS ORDERED: IOHEXOL 350 MG/ML 10 ML VIAL (for RAD DIAG) IVCONTRAST ONE (11:00)
[2017-08-09] MEDS ORDERED: POLYETHYLENE GLYCOL 17 GM PKG PO ONE (11:15)
[2017-08-09] MEDS ORDERED: MAGNESIUM OXIDE 400 MG TAB PO ONE (12:45)
[2017-08-09] MEDS ORDERED: POTASSIUM CHLORIDE 10 MEQ CONTROLLED RELEASE TAB PO ONE (12:45)
[2017-08-09] MEDS ORDERED: METOPROLOL TARTRATE 25 MG TAB PO ONE (12:45)
--- NOTE | 2017-08-09 13:13 | RADRPT ---
EXAM DATE/TIME: 08/09/2017 09:42 [facility] COMPARISON: No previous studies available for comparison. INDICATIONS : Right groin pain status post cardiac catheterization. IV CONTRAST: 100 cc Omnipaque 350 (iohexol) IV RADIATION DOSE: 12.06 CTDIvol (mGy) MEDICAL HISTORY : Hypertension. Diabetes mellitus type 2. SURGICAL HISTORY : CABG cardiac catheterization ENCOUNTER: Initial ACUITY: 4 - 6 days PAIN SCALE: 6/10 LOCATION: Right groin Patient was premedicated for underlying contrast media allergy. TECHNIQUE: Volumetric scanning was performed using a multi-row detector CT scanner. The data was post processed with a variety of visualization algorithms including full volume maximum intensity pr ojection, multi-planar sliding thin slab reformation, curved planar reformation, and surface renderin g techniques. Using automated exposure control and adjustment of the mA and/or kV according to patie nt size, radiation dose was kept as low as reasonably achievable to obtain optimal diagnostic quality images. DICOM format image data is available electronically for review and comparison. FINDINGS: AORTA: Mild distal atelectasis right lacerations without significant flow-limiting stenosis or an eurysm. VISCERAL ARTERIES: Single bilateral renal arteries. Mild to moderate stenosis of the right renal artery origin secondary to eccentric calcified plaque. Very mild stenosis of the left renal artery or igin secondary calcified plaque. The celiac, SMA, and PAN are patent. RIGHT LEG: INFLOW: Mild calcified plaque in the distal common iliac artery with no significant flow-limiting stenosis. Diffusely calcified internal iliac artery origin. Additionally artery is patent. Mild ecce ntric plaque in the distal common femoral artery without significant flow-limiting stenosis. The ther e is a small 2.2 x 2.9 cm hematoma in the right groin slightly caudal to the distal common femoral ar will. This does not appear to directly communicate with the femoral arteries. No contrast extravasati on is noted. OUTFLOW: Mild stenosis of the profunda origin secondary calcified plaque. Scattered diffuse calci fied plaque throughout the SFA with resultant severe focal stenosis distally near the adductor canal. Mild diffuse popliteal artery calcifications without significant flow-limiting stenosis. RUNOFF: The three-vessel runoff. The anterior tibial and peroneal arteries are not visualized bey ond the mid to distal calf. The posterior tibial artery is the dominant runoff vessel. LEFT LEG: INFLOW: Mild calcified plaque in the distal common iliac artery with mild stenosis. Diffusely luis miguel cified internal neck artery origin. External iliac arteries patent. Eccentric calcified plaque in the distal common femoral artery with result in mild stenosis. OUTFLOW: Plaque involves the origin of the profunda with deqs-ay-axmqobyd stenosis. Scattered luis miguel cified plaque throughout the SFA with tandem moderate and severe focal stenoses distally near the abd uctor canal. RUNOFF: Limited two-vessel runoff. Anterior tibial artery is very small in caliber and occluded i n the very proximal catheter. Posterior tibial artery is the dominant runoff vessel. Peroneal artery supplies the dorsal arch. GENERAL FINDINGS: Visualized lung bases are clear. Dilation of the abdominal viscera is limited due to arterial phase t echnique. Mild diffuse decreased hepatic attenuation consistent with hepatic steatosis. Gallbladder i s mildly distended but otherwise unremarkable. Spleen, adrenal glands, and pancreas are grossly unrem arkable. Kidneys demonstrate symmetrical enhancement without evidence of radiopaque anal calculi or h ydronephrosis. There is a 6.6 cm cyst in the posterior inferior pole the right kidney. There is a 4.4 cm cyst in the anterior superior pole of the right kidney. Mild sigmoid diverticulosis. Bowel otherw ise appears grossly unremarkable. No significant free fluid or drainable fluid collection. No free ai r or pneumatosis. Bladder is mildly distended but otherwise unremarkable. Prostate and seminal vesicles are within norm al limits. CONCLUSION: 1. Small right groin hematoma without definitive evidence for active hemorrhage or communication with the femoral arteries to suggest pseudoaneurysm. Further evaluation may be performed with ultrasound if there is continued clinical concern regarding pseudoaneurysm. 2. No significant aortic or inflow stenosis. 3. Focal bilateral distal SFA severe stenoses near the adductor canal. 4. Limited runoff bilaterally, as above. 5. Ancillary findings include hepatic steatosis, cysts in the right kidney and mild sigmoid diverticu losis. Rafi Dillard MD on August 09, 2017 at 12:58 Board Certified Radiologist. This report was verified electronically.
[2017-08-09] MEDS ORDERED: POLYETHYLENE GLYCOL 17 GM PKG PO SCH (21:00)
[2017-08-09] MEDS: METOPROLOL TARTRATE 25 MG TAB PO SCH (21:42)
[2017-08-09] MEDS: ATORVASTATIN 40 MG TAB PO SCH (21:42)
[2017-08-09] MEDS: ACETAMINOPHEN/HYDROcodone 325 MG/5 MG TAB PO PRN (21:47)
--- NOTE | 2017-08-09 22:46 | EKG ---
Date Performed: 08/08/2017 Time Performed: 14:08:07 PTAGE: 71 years EKG: ATRIAL FIBRILLATION INFERIOR MYOCARDIAL INFARCTION , OF INDETERMINATE AGE ABNORMAL ECG PREVIOUS TRACING : 08/07/2017 23.42 Compared to prior tracing no significant change DOCTOR: Jose Antonio Cassidy Interpretating Date/Time 08/09/2017 22:45:18
--- NOTE | 2017-08-09 23:11 | EKG ---
Date Performed: 08/07/2017 Time Performed: 23:42:30 PTAGE: 71 years EKG: ATRIAL FIBRILLATION INFERIOR MYOCARDIAL INFARCTION ABNORMAL ECG PREVIOUS TRACING : 01/09/2015 11.43 Compared to prior tracing no significant change DOCTOR: Jose Antonio Cassidy Interpretating Date/Time 08/09/2017 23:09:11
[2017-08-10] VITALS: BP 143/71; PULSE 88; PULSE 93; RESP 17; TEMP 97.3; O2SAT 96
[2017-08-10 04:00] VITALS: BP 128/71; PULSE 92; PULSE 93; RESP 16; TEMP 97.6; O2SAT 96
[2017-08-10 07:22] LABS: AUTOMATED NEUTROPHIL # 6.9 TH/MM3 (1.8-7.7); BASOPHIL % 0.2 % (0.0-2.0); EOSINOPHIL % 0.3 % (0.0-4.0); HEMATOCRIT 39.2 % (39.0-51.0); HEMO FLAGS DIFF FINAL; LYMPH % 17.6 % (9.0-44.0); LYMPHOCYTE # 1.7 TH/MM3 (1.0-4.8); MEAN CELL VOLUME 90.3 FL (80.0-100.0); MEAN CORPUSCULAR HEMOGLOBIN 30.8 PG (27.0-34.0); MEAN CORPUSCULAR HGB CONC 34.1 % (32.0-36.0); MONO % 12.4 % (0.0-8.0); NEUT % 69.5 % (16.0-70.0); PLATELET COUNT 198 TH/MM3 (150-450); RED BLOOD COUNT 4.34 MIL/MM3 (4.50-5.90); RED CELL DISTRIBUTION WIDTH 14.3 % (11.6-17.2); WHITE BLOOD COUNT 9.9 TH/MM3 (4.0-11.0)
[2017-08-10 07:48] LABS: BICARBONATE 20.9 MEQ/L (21.0-32.0); MAGNESIUM 2.1 MG/DL (1.5-2.5); POTASSIUM 3.9 MEQ/L (3.5-5.1)
[2017-08-10 08:00] VITALS: BP 160/88; PULSE 86; RESP 20; TEMP 97.3; O2SAT 96
[2017-08-10] MEDS: INSULIN ASPART SUPPLEMENTAL SCALE SQ SCH ×2 (08:00→11:52)
[2017-08-10] MEDS: METOPROLOL TARTRATE 25 MG TAB PO SCH (08:54)
[2017-08-10] MEDS: ENOXAPARIN SODIUM 100 MG/ML SYRINGE SQ SCH (08:54)
[2017-08-10] MEDS: LISINOPRIL 20 MG TAB PO SCH (08:54)
[2017-08-10] MEDS: PANTOPRAZOLE SOD 40 MG DELAYED RELEASE TAB PO SCH (08:55)
[2017-08-10] MEDS: DOXAZOSIN MESYLATE 4 MG TAB PO SCH (08:55)
[2017-08-10] MEDS: DOCUSATE SODIUM 50 MG/SENNA 8.6 MG TAB PO SCH (08:55)
[2017-08-10] MEDS: SODIUM CHLORIDE 0.9% FLUSH 10 ML FLUSH IV FLUSH SCH (08:56)
[2017-08-10] MEDS: amLODIPine BESYLATE 5 MG TAB PO SCH (09:00)
[2017-08-10] MEDS ORDERED: PSYLLIUM FIBER SF/GF 6 GM POWD PKT PO SCH (09:00)
--- NOTE | 2017-08-10 10:25 | HHI.PR ---
Subjective Remarks Sleepy, feels tired. Says she had a small BM yesterday despite multiple laxatives/ stool softeners. H eis willing to have an enema. No abd pain .Right groin hematoma improving. No pain at the right groin. No n/v/d/c. No fever or chills. Objective Vitals Vital Signs Date Time Temp Pulse Resp B/P (MAP) Pulse Ox O2 Delivery O2 Flow Rate FiO2 08/10/17 08:00 97.3 86 20 160/88 (112) 96 08/10/17 04:00 97.6 92 16 128/71 (90) 96 08/10/17 04:00 93 08/10/17 00:00 Room Air 08/10/17 00:00 88 08/10/17 00:00 97.3 93 17 143/71 (95) 96 08/09/17 20:00 Room Air 08/09/17 20:00 97.5 90 17 119/73 (88) 96 08/09/17 20:00 95 08/09/17 16:10 96 08/09/17 16:00 97.3 89 20 119/64 (82) 94 08/09/17 12:00 98.2 86 20 110/59 (76) 95 I/O 08/09/17 08/09/17 08/09/17 08/10/17 08/10/17 08/10/17 07:00 15:00 23:00 07:00 15:00 23:00 Intake Total 1564 ml 480 ml 1589 ml Balance 1564 ml 480 ml 1589 ml Intake Oral 720 ml 480 ml 720 ml IV Total 844 ml 869 ml # Voids 3 3 1 # Bowel Movements 1 Result Diagram: 08/10/17 0620 08/10/17 0620 Imaging Last Impressions Aorta w/Runoff CTA 08/09/17 0000 Signed Impressions: Service Date/Time: Wednesday, August 09, 2017 09:42 - CONCLUSION: 1. Small right groin hematoma without definitive evidence for active hemorrhage or communication with the femoral arteries to suggest pseudoaneurysm. Further evaluation may be performed with ultrasound if there is continued clinical concern regarding pseudoaneurysm. 2. No significant aortic or inflow stenosis. 3. Focal bilateral distal SFA severe stenoses near the adductor canal. 4. Limited runoff bilaterally, as above. 5. Ancillary findings include hepatic steatosis, cysts in the right kidney and mild sigmoid diverticulosis. Rafi Dillard MD Carotid Artery Ultrasound 08/08/17 0000 Signed Impressions: Service Date/Time: Tuesday, August 08, 2017 16:46 - CONCLUSION: 1. Mild bilateral carotid plaque without significant flow-limiting stenosis. 2. Antegrade vertebral artery flow bilaterally. Rafi Dillard MD Lower Extremity Ultrasound 08/07/17 0000 Signed Impressions: Service Date/Time: Monday, August 07, 2017 21:49 - CONCLUSION: 1. No flow identified within a pseudoaneurysm. Questionable clotted pseudoaneurysm at right common femoral artery. Ramiro Jones MD Abdomen/Pelvis CT 08/07/17 0000 Signed Impressions: Service Date/Time: Monday, August 07, 2017 20:24 - CONCLUSION: 1. Approximately 4 cm hematoma in the right groin. No extension into the pelvis or retroperitoneum. 2. Small bilateral pleural effusions. 3. Multiple right renal cysts. Mild constipation. No free air or free fluid in the abdomen or pelvis. Ramiro Jones MD Objective Remarks GENERAL: This is an obese older male patient, in no apparent distress. CARDIOVASCULAR: Irregularly irregular with 2/6 systolic murmur best auscultated left sternal border, second IC space. Right dorsalis pedis +2, left dorsalis pedis +1. Bilateral external lower extremities are equally warm to touch. Right groin with large area of ecchymosis and no active bleeding noted. A small amount of dried red blood is noted in right femoral area. RESPIRATORY: Clear to auscultation. Breath sounds equal bilaterally. No wheezes , rales, or rhonchi. GASTROINTESTINAL: Abdomen obese soft, non-tender, nondistended. No guarding. MUSCULOSKELETAL: Extremities without clubbing, cyanosis, or edema. No calf tenderness. NEUROLOGICAL: Awake and alert. Motor and sensory grossly within normal limits. Normal speech. A/P Problem List: (1) Pseudoaneurysm of femoral artery ICD Code: I72.4 - Aneurysm of artery of lower extremity Status: Acute (2) Atrial fibrillation ICD Code: I48.91 - Unspecified atrial fibrillation (3) Hypokalemia ICD Code: E87.6 - Hypokalemia (4) Hypertension ICD Code: I10 - Essential (primary) hypertension Status: Chronic (5) Hyperlipidemia ICD Code: E78.5 - Hyperlipidemia, unspecified Status: Chronic (6) Type 2 diabetes mellitus ICD Code: E11.9 - Type 2 diabetes mellitus without complications Status: Chronic Assessment and Plan Mr. Last is a 71 y/o male with a history of CAD s/p CABG x 3, T2DM, atrial fibrillation, aortic stenosis, hypertension, hyperlipidemia, obstructive sleep apnea on home CPAP, and chronic low back pain presented to the emergency department in [place] on 08/07/2017 for evaluation of right groin bleeding status post cardiac ablation performed by Dr. Ferro in [place] on 2016. Abdomen/pelvis CT without contrast was performed showing 4 cm hematoma in right groin with no extension into the pelvis or retroperitoneum. Lower extremity ultrasound showed no flow identified within pseudoaneurysm. Questionable clotted pseudoaneurysm at right common femoral artery. Given concern for limb ischemia, the patient was transferred to [facility] for vascular surgery consultation - case was discussed between ER physician Dr. Cline and Dr. Romeo. Pseudoaneurysm of the femoral artery - Consult vascular surgery - Dr. Romeo assistance is appreciated. S/P CTA Aorta with run off, patient is pretreated as patient with allergy to contrast , and tolerated well. Imaging reviewed by Dr Katz and recommends no surgery at this time to resume eliquis and also to f/u as OP - right lower extremity DP pulse easily palpable, extremity warm - Bedrest - H&H 13.9/42.4 - monitor - By mouth Tylenol, [place], and IV morphine as needed for pain based on pain level score Atrial fibrillation persisting despite recent ablation - Consult cardiology, appreciate recommendations - increase home metoprolol as patient with elevated BP and Afib with rvr , monitor on telemetry - Continuous cardiac telemetry to monitor for arrhythmia Hypokalemia - Potassium 3.3 on admission - orally replaced. Monitor and replace as need Keep K > 4 and mag> 2. - Recheck potassium with CMP in a.m. and follow results and replace as indicated. Monitor mag level as well and replace as need. Hypertension - Continue home Cardura, amlodipine, and lisinopril - Monitor blood pressure trends and adjust treatments if indicated Hyperlipidemia - Continue home statin therapy Type 2 Diabetes Mellitus - Hold home by mouth medications: Metformin and Jardiance - Accu-Cheks before meals and at bedtime with low-dose NovoLog sliding scale coverage - Hypoglycemia protocol - Monitor trends and blood glucose readings and adjust treatments as indicated Constipation: Bowel regimen add miralax as patient is taking it at home. Add enema. Discussed Condition With Patient, nurse, family at bedside DC plan : Seen by Dr Romeo, cleared the patient for DC to resume Eliquis and to follow up as OP. Marlen Hernández MD Aug 10, 2017 10:25
[2017-08-10] MEDS ORDERED: SOD PHOSPHATE/SOD BIPHOSPHATE (ADULT) ENEMA 133ML RECTAL ONE (11:00)
--- NOTE | 2017-08-10 11:44 | HHI.DS ---
Discharge Summary Admission Date Aug 07, 2017 at 23:41 Discharge Date: Aug 10, 2017 Admitting Diagnosis Pseudoaneurysm RLE/R femoral aa (1) Pseudoaneurysm of femoral artery ICD Code: I72.4 - Aneurysm of artery of lower extremity Status: Acute (2) Atrial fibrillation ICD Code: I48.91 - Unspecified atrial fibrillation (3) Hypokalemia ICD Code: E87.6 - Hypokalemia (4) Hypertension ICD Code: I10 - Essential (primary) hypertension Status: Chronic (5) Hyperlipidemia ICD Code: E78.5 - Hyperlipidemia, unspecified Status: Chronic (6) Type 2 diabetes mellitus ICD Code: E11.9 - Type 2 diabetes mellitus without complications Status: Chronic Procedures none Brief History - From Admission Mr. Last is a 71 y/o male with a history of CAD s/p CABG x 3, T2DM, atrial fibrillation, aortic stenosis, hypertension, hyperlipidemia, obstructive sleep apnea on home CPAP, and chronic low back pain presented to the emergency department in [place] on 08/07/2017 for evaluation of right groin bleeding status post cardiac ablation performed by Dr. Ferro in [place] on 2016. Abdomen/pelvis CT without contrast was performed showing 4 cm hematoma in right groin with no extension into the pelvis or retroperitoneum. Lower extremity ultrasound showed no flow identified within pseudoaneurysm. Questionable clotted pseudoaneurysm at right common femoral artery. Given concern for limb ischemia, the patient was transferred to [facility] for vascular surgery consultation - case was discussed between ER physician Dr. Cline and Dr. Romeo. Patient is seen in his hospital room after transfer from [place]. He states that he had gone to [place] on Friday 08/03 and a NIGHAT was done. He stayed overnight and had the cardiac ablation done on 08/04. He held his Eliquis Thursday morning. He took it on Thursday night, the night before the procedure. He states that on Thursday, the staple was removed and shortly thereafter he noted some bleeding after getting up to go to the bathroom. A pressure device was applied for 2 hours and he was discharged after hemostasis was achieved. However, morning, he noted some blood in his underwear and it seeped in his underwear all day. He attempted to contact his local mosaic layer and was told to call Dr. Ferro's office since they had performed the procedure. He was unable to reach Dr. Ferro and on Thursday at 4:00, he was told by the triage desk in [place] to go to the local emergency room. He denies any chest pain, shortness of breath, fevers, chills, nausea, vomiting , diarrhea, black or bloody stools, or hematuria. He denies any calf pain. CBC/BMP: 08/10/17 0620 08/10/17 0620 Significant Findings Laboratory Tests Test 08/07/17 20:43 08/08/17 07:51 08/09/17 13:33 08/10/17 06:20 Monocytes (%) (Auto) 13.6 % (0.0-8.0) 12.0 % (0.0-8.0) 12.4 % (0.0-8.0) Activated Partial Thromboplast Time 30.4 SEC (24.3-30.1) Creatinine 0.58 MG/DL (0.60-1.30) Random Glucose 138 MG/DL (74-106) 145 MG/DL (74-106) 187 MG/DL (74-106) Calcium Level 8.4 MG/DL (8.5-10.1) 8.4 MG/DL (8.5-10.1) Potassium Level 3.3 MEQ/L (3.5-5.1) 3.3 MEQ/L (3.5-5.1) Alkaline Phosphatase 156 U/L (45-117) Total Bilirubin 1.2 MG/DL (0.2-1.0) Red Blood Count 4.34 MIL/MM3 (4.50-5.90) Monocytes # (Auto) 1.2 TH/MM3 (0-0.9) Chloride Level 112 MEQ/L (98-107) Carbon Dioxide Level 20.9 MEQ/L (21.0-32.0) Estimat Glomerular Filtration Rate 81 ML/MIN (>89) Imaging Last Impressions Aorta w/Runoff CTA 08/09/17 0000 Signed Impressions: Service Date/Time: Wednesday, August 09, 2017 09:42 - CONCLUSION: 1. Small right groin hematoma without definitive evidence for active hemorrhage or communication with the femoral arteries to suggest pseudoaneurysm. Further evaluation may be performed with ultrasound if there is continued clinical concern regarding pseudoaneurysm. 2. No significant aortic or inflow stenosis. 3. Focal bilateral distal SFA severe stenoses near the adductor canal. 4. Limited runoff bilaterally, as above. 5. Ancillary findings include hepatic steatosis, cysts in the right kidney and mild sigmoid diverticulosis. Rafi Dillard MD Carotid Artery Ultrasound 08/08/17 0000 Signed Impressions: Service Date/Time: Tuesday, August 08, 2017 16:46 - CONCLUSION: 1. Mild bilateral carotid plaque without significant flow-limiting stenosis. 2. Antegrade vertebral artery flow bilaterally. Rafi Dillard MD Lower Extremity Ultrasound 08/07/17 0000 Signed Impressions: Service Date/Time: Monday, August 07, 2017 21:49 - CONCLUSION: 1. No flow identified within a pseudoaneurysm. Questionable clotted pseudoaneurysm at right common femoral artery. Ramiro Jones MD Abdomen/Pelvis CT 08/07/17 0000 Signed Impressions: Service Date/Time: Monday, August 07, 2017 20:24 - CONCLUSION: 1. Approximately 4 cm hematoma in the right groin. No extension into the pelvis or retroperitoneum. 2. Small bilateral pleural effusions. 3. Multiple right renal cysts. Mild constipation. No free air or free fluid in the abdomen or pelvis. Ramiro Jones MD PE at Discharge GENERAL: This is an obese older male patient, in no apparent distress. CARDIOVASCULAR: Irregularly irregular with 2/6 systolic murmur best auscultated left sternal border, second IC space. Right dorsalis pedis +2, left dorsalis pedis +1. Bilateral external lower extremities are equally warm to touch. Right groin with large area of ecchymosis and no active bleeding noted. A small amount of dried red blood is noted in right femoral area. RESPIRATORY: Clear to auscultation. Breath sounds equal bilaterally. No wheezes , rales, or rhonchi. GASTROINTESTINAL: Abdomen obese soft, non-tender, nondistended. No guarding. MUSCULOSKELETAL: Extremities without clubbing, cyanosis, or edema. No calf tenderness. NEUROLOGICAL: Awake and alert. Motor and sensory grossly within normal limits. Normal speech. Hospital Course Mr. Last is a 71 y/o male with a history of CAD s/p CABG x 3, T2DM, atrial fibrillation, aortic stenosis, hypertension, hyperlipidemia, obstructive sleep apnea on home CPAP, and chronic low back pain presented to the emergency department in [place] on 08/07/2017 for evaluation of right groin bleeding status post cardiac ablation performed by Dr. Ferro in [place] on 2016. Abdomen/pelvis CT without contrast was performed showing 4 cm hematoma in right groin with no extension into the pelvis or retroperitoneum. Lower extremity ultrasound showed no flow identified within pseudoaneurysm. Questionable clotted pseudoaneurysm at right common femoral artery. Given concern for limb ischemia, the patient was transferred to [facility] for vascular surgery consultation - case was discussed between ER physician Dr. Cline and Dr. Romeo. Patient with Pseudoaneurysm of the femoral artery Consult vascular surgery - Dr. Romeo assistance is appreciated. S/P CTA Aorta with run off, patient is pretreated as patient with allergy to contrast , and tolerated well. Imaging reviewed by Dr Katz and recommends no surgery at this time to resume eliquis and also to f/u as OP Patient with Atrial fibrillation persisting despite recent ablation. To follow up as OP with his cardiology Patient improved cleared by consultants for DC home in stable condition to follow up as OP with PCP and consultants. Pt Condition on Discharge: Stable Discharge Disposition: Discharge Home Discharge Time: > 30 minutes Discharge Instructions DIET: Follow Instructions for: Heart Healthy Diet, Diabetic Diet Activities you can perform: Regular-No Restrictions Follow up Referrals: Cardiology - 2 Weeks PCP Follow-up - 2-3 Days Vascular Surgery - 4 Weeks with Vahid Romeo MD Continued Medications: Amlodipine (Amlodipine) 5 Mg Tab 5 MG PO DAILY for Blood Pressure Management, #30 TAB 0 Refills Apixaban (Eliquis) 5 Mg Tab 5 MG PO BID for Blood Clot Prevention, #60 TAB 0 Refills Aspirin (Aspirin) 81 Mg Chew 81 MG CHEW DAILY, TAB 0 Refills Atorvastatin (Atorvastatin) 40 Mg Tab 40 MG PO HS for Cholesterol Management, #30 TAB 0 Refills Benazepril (Benazepril) 40 Mg Tab 40 MG PO BID for Blood Pressure Management, #30 TAB 0 Refills Doxazosin (Doxazosin) 8 Mg Tab 8 MG PO DAILY, #30 TAB 0 Refills Empagliflozin (Jardiance) 25 Mg Tab 25 MG PO DAILY for Blood Sugar Management, #30 TAB 0 Refills Hydrochlorothiazide (Hydrochlorothiazide) 12.5 Mg Tab 12.5 MG PO DAILY, #30 TAB 0 Refills Metformin (Metformin) 850 Mg Tab 850 MG PO DAILY for Blood Sugar Management, TAB 0 Refills With a meal Metoprolol Tartrate (Metoprolol Tartrate) 100 Mg Tab 100 MG PO DAILY, #30 TAB 0 Refills Pantoprazole (Pantoprazole) 40 Mg Tab 40 MG PO DAILY for Reflux, #30 TAB 0 Refills Potassium Chloride ER (Potassium Chloride ER) 10 Meq Tab 10 MEQ PO DAILY for Electrolyte Replacement, #30 TAB 0 Refills Zolpidem (Zolpidem) 10 Mg Tab 10 MG PO HS PRN for INSOMNIA, TAB 0 Refills Marlen Hernández MD Aug 10, 2017 11:44
[2017-08-10 12:00] VITALS: BP 166/91; PULSE 91; RESP 20; TEMP 97.3; O2SAT 95
--- NOTE | 2017-08-10 12:30 | PD.CAR.PN ---
CVT Progress Note Subjective/Hospital Course: 71-year-old male status post catheterization and ablation through the right femoral artery in an institution in [place] on 04 of August Patient was discharged the same day and noticed the large amount of blood on his gown the next day and the day after finally presented to the emergency room at [place] late last night. I discussed this with the ER physician Patient has ultrasonographic occlusion of right common femoral artery with distal reconstitution There is a large hematoma in the right groin but no pseudoaneurysm Most likely patient had a Perclose device placed after the catheterization and at that time the back wall of the vessel was caught occluding the entire vessel CTA with runoff has been ordered and depending on these findings patient will most likely require surgery to restore normal blood flow to the leg At this point patient has mild ischemia of the right leg somewhat decreased and delayed capillary refill refill and weaker Doppler signal on the right than on the left I discussed this at length with patient and will intervene based on CTA findings Eliquis will need to be stopped temporarily Full consult dictated 08/09/17 Patient doing well at this time He has collateral perfusion to the right foot and lower leg Slight decrease in capillary refill elevation pallor not noted on the left leg Patient awaiting CTA with runoff which should visualize the areas of occlusion as well as inflow and outflow abnormalities if any existing Based on this will plan surgery for tomorrow Awaiting CTA 08/10/17 Patient doing well at this time I reviewed CTA with runoff. The ultrasound mentioned occlusion of common femoral artery is not present and patient has normal inflow. He has mild disease in the aorta and some moderate changes in the internal/ external iliac arteries but nothing that would constitute flow-limiting stenosis Beyond the inguinal ligament situation is somewhat different. Patient has multilevel occlusion of the SFA in the adductor canal bilaterally with reconstitution of the popliteal arteries. In addition patient has a right sided runoff by posterior tibial and anterior tibial arteries of which the former one is full and the latter one is interrupted. Perineal is diminutive On the left side patient has diminutive peroneal artery and anterior tibial artery is occluded On further questioning my clinical diagnosis is confirmed with patient's experience of being able to walk certain distance and then having pain in the left foot. He states that he never walks really far to see if he can walk because the pain in the left foot and calf is the limiting factor. Based on these findings patient can be safely discharged on Eliquis and will follow-up with me in September. At that time I'll reevaluate the patient and he will then require left femoropopliteal bypass followed by the right femoral- popliteal bypass. Therefore patient can be discharged safely today. Objective: Vital Signs Date Time Temp Pulse Resp B/P (MAP) Pulse Ox O2 Delivery O2 Flow Rate FiO2 08/10/17 08:00 97.3 86 20 160/88 (112) 96 08/10/17 08:00 Room Air 08/10/17 04:00 97.6 92 16 128/71 (90) 96 08/10/17 04:00 93 08/10/17 00:00 Room Air 08/10/17 00:00 88 08/10/17 00:00 97.3 93 17 143/71 (95) 96 08/09/17 20:00 Room Air 08/09/17 20:00 97.5 90 17 119/73 (88) 96 08/09/17 20:00 95 08/09/17 16:10 96 08/09/17 16:00 97.3 89 20 119/64 (82) 94 Labs: Laboratory Tests Test 08/10/17 06:20 White Blood Count 9.9 TH/MM3 (4.0-11.0) Red Blood Count 4.34 MIL/MM3 (4.50-5.90) Hemoglobin 13.4 GM/DL (13.0-17.0) Hematocrit 39.2 % (39.0-51.0) Mean Corpuscular Volume 90.3 FL (80.0-100.0) Mean Corpuscular Hemoglobin 30.8 PG (27.0-34.0) Mean Corpuscular Hemoglobin Concent 34.1 % (32.0-36.0) Red Cell Distribution Width 14.3 % (11.6-17.2) Platelet Count 198 TH/MM3 (150-450) Mean Platelet Volume 8.5 FL (7.0-11.0) Neutrophils (%) (Auto) 69.5 % (16.0-70.0) Lymphocytes (%) (Auto) 17.6 % (9.0-44.0) Monocytes (%) (Auto) 12.4 % (0.0-8.0) Eosinophils (%) (Auto) 0.3 % (0.0-4.0) Basophils (%) (Auto) 0.2 % (0.0-2.0) Neutrophils # (Auto) 6.9 TH/MM3 (1.8-7.7) Lymphocytes # (Auto) 1.7 TH/MM3 (1.0-4.8) Monocytes # (Auto) 1.2 TH/MM3 (0-0.9) Eosinophils # (Auto) 0.0 TH/MM3 (0-0.4) Basophils # (Auto) 0.0 TH/MM3 (0-0.2) CBC Comment DIFF FINAL Differential Comment Blood Urea Nitrogen 18 MG/DL (7-18) Creatinine 0.92 MG/DL (0.60-1.30) Random Glucose 187 MG/DL (74-106) Calcium Level 8.9 MG/DL (8.5-10.1) Magnesium Level 2.1 MG/DL (1.5-2.5) Sodium Level 141 MEQ/L (136-145) Potassium Level 3.9 MEQ/L (3.5-5.1) Chloride Level 112 MEQ/L (98-107) Carbon Dioxide Level 20.9 MEQ/L (21.0-32.0) Anion Gap 8 MEQ/L (5-15) Estimat Glomerular Filtration Rate 81 ML/MIN (>89) Result Diagram: 08/10/1761908/10/1720 Vahid Romeo MD Aug 10, 2017 12:30
--- NOTE | 2017-08-10 17:01 | ECHRPT ---
Indication: CONCLUSIONS Normal left ventricular size. Wall thickness is normal. The left ventricular systolic function is mildly reduced with an estimated ejection fraction in the range of 45- 50%. The left atrial size is upper limits of normal. Mitral annular calcification is present. Moderate mitral annular calcification. Trace mitral valve regurgitation. Moderate aortic valve stenosis. Moderate thickening of the aortic valve leaflets. Aortic valve area is 0.54 cm. Aortic valve mean gradient is 26 mmHg. max gradient 44 mmHg VMAX 362 cm/sThere is trace tricuspid valve regurgitation. The estimated pulmonary arterial pressure is 27 mmHg. BP: 149 / 92 HR: 103 Rhythm: MEASUREMENTS (Male / Female) Normal Values Technical Quality:Good 2D ECHO LV Diastolic Diameter PLAX 5.0 cm 4.2 - 5.9 / 3.9 - 5.3 cm LV Systolic Diameter PLAX 4.1 cm IVS Diastolic Thickness 1.1 cm 0.6 - 1.0 / 0.6 - 0.9 cm LVPW Diastolic Thickness 0.7 cm 0.6 - 1.0 / 0.6 - 0.9 cm LV Relative Wall Thickness 0.4 LVOT Diameter 2.0 cm LA Systolic Diameter LX 3.9 cm 3.0 - 4.0 / 2.7 - 3.8 cm DOPPLER AV Peak Velocity 362.0 cm/s AV Peak Gradient 52.4 mmHg AV Mean Gradient 26.0 mmHg AV Velocity Time Integral 94.4 cm LVOT Peak Velocity 63.0 cm/s LVOT Peak Gradient 1.6 mmHg LVOT Velocity Time Integral 16.2 cm LVOT Cardiac Index 2061.7 cm/minm AV Area Cont Eq vti 0.5 cm AV Area Cont Eq pk 0.5 cm MV Peak Velocity 145.0 cm/s MV Peak Gradient 8.4 mmHg MV Mean Velocity 75.0 cm/s MV Mean Gradient 3.0 mmHg Mitral E Point Velocity 124.0 cm/s Mitral A Point Velocity 38.3 cm/s Mitral E to A Ratio 3.2 TR Peak Velocity 258.0 cm/s TR Peak Gradient 26.6 mmHg FINDINGS LEFT VENTRICLE Normal left ventricular size. Wall thickness is normal. The left ventricular systolic function is mildly reduced with an estimated ejection fraction in the range of 45- 50%. RIGHT VENTRICLE Normal right ventricular size and systolic function. LEFT ATRIUM The left atrial size is upper limits of normal. RIGHT ATRIUM The right atrial size is normal. ATRIAL SEPTUM Normal atrial septal thickness without atrial level shunting by limited color doppler interrogation. AORTA The aortic root and proximal ascending aorta are normal in size on limited imaging. MITRAL VALVE Mitral annular calcification is present. Moderate mitral annular calcification. Trace mitral valve regurgitation. AORTIC VALVE Moderate aortic valve stenosis. Moderate thickening of the aortic valve leaflets. Aortic valve area is 0.54 cm. Aortic valve mean gradient is 26 mmHg. max gradient 44 mmHg VMAX 362 cm/s TRICUSPID VALVE There is trace tricuspid valve regurgitation. The estimated pulmonary arterial pressure is 27 mmHg. PULMONARY VALVE The pulmonary valve is not well visualized. VESSELS The inferior vena cava is normal in size. PERICARDIUM No pericardial effusion. Jono Brink MD (Electronically Signed) Final Date:10 August 2017 17:00
== END 2017-08-10 13:11 | disposition home or self-care (01) | DRG 301 ==
LOC: PHED 17:08 → PHEDA 23:41 → N04B 08-08 01:47
PROVIDERS: ADMIT Hospitalist; ATTEND Hospitalist
DX: I72.4 Aneurysm of artery of lower extremity (principal); J44.9 Chronic obstructive pulmonary disease, unspecified; I48.2 Chronic atrial fibrillation; E11.9 Type 2 diabetes mellitus without complications; I10 Essential (primary) hypertension; E78.5 Hyperlipidemia, unspecified; G25.0 Essential tremor; E87.6 Hypokalemia; G47.33 Obstructive sleep apnea (adult) (pediatric); I25.10 Atherosclerotic heart disease of native coronary artery without angina pectoris; G89.29 Other chronic pain; M54.5 Low back pain; I35.0 Nonrheumatic aortic (valve) stenosis; I70.201 Unspecified atherosclerosis of native arteries of extremities, right leg; K59.00 Constipation, unspecified; S30.1XXA Contusion of abdominal wall, initial encounter; E66.9 Obesity, unspecified; F17.210 Nicotine dependence, cigarettes, uncomplicated; Z95.1 Presence of aortocoronary bypass graft; Z91.041 Radiographic dye allergy status
CPT/HCPCS: 74176; 75635; 76937; 80048; 80053; 82948; 83735; 85025; 85610; 85730; 86850; 86900; 86901; 86920; 93005; 93306; 93880; 93926; J1650; J1815; J2405; J7030; J7512; Q0163; Q9967

== ENCOUNTER 2017-08-26 10:06 | Day surgery (SDC) | payer MEDICARE, OTHER ==
[~2017-08-26 10:06] MED LIST changes: +AMLO5TAB2 PO; +ASPI-516 CHEW; -ATOR10TA PO; +ATOR40TA16 PO; -CENTCHW3 PO; -DOXA1 PO; +DOXA1TAB43 PO; -ECOT81TA2 PO; +EMPA1TAB3 PO; -HYDR-2768 PO; +HYDR12.56 PO; -NIAS10004 PO; +PANT40TA3 PO; -POTA-267 PO; +POTA10TA2 PO; +ZOLP10TA3 PO
[2017-08-26] MEDS ORDERED: SODIUM CHLORID 0.9% 500 ML IV PRN (11:45)
[2017-08-26] MEDS ORDERED: METOPROLOL TARTRATE 25 MG TAB PO PRN (11:45)
[2017-08-26] MEDS ORDERED: CHLORHEXIDINE GLUCONATE 2 % 1 PACK (2 CLOTHS) TOPICAL PRN (11:45)
[2017-08-26] MEDS ORDERED: POVIDONE IODINE 5% (ANTISEPSIS KIT) 4 APPLICATIONS EACH NARE PRN (11:45)
[2017-08-26] MEDS ORDERED: LACTATED RINGER'S 1000 ML IV PRN (11:45)
--- NOTE | 2017-08-26 14:47 | EKG ---
Date Performed: 08/26/2017 Time Performed: 10:31:30 PTAGE: 71 years EKG: Atrial fibrillation. Inferior infarct - age undetermined QRS changes V3/V4 may be due to LV H but cannot rule out anterior infarct Nonspecific T wave changes Abnormal ECG No significant change from prior electrocardiogram. PREVIOUS TRACING : 08/08/2017 14.08 DOCTOR: Myke Sal Interpretating Date/Time 08/26/2017 14:46:45
--- NOTE | 2017-08-27 14:15 | EKG ---
Date Performed: 08/26/2017 Time Performed: 13:26:48 PTAGE: 71 years EKG: Sinus bradycardia with first degree AV block Inferior infarct - age undetermined QRS change s V3/V4 may be due to LVH but cannot rule out anterior infarct Nonspecific T wave changes Compared to previous tracing Sinus rhythm has replaced atrial fibrillation Abnormal ECG PREVIOUS TRACING : 08/26/2017 10.31 DOCTOR: Emigdio Daniels Interpretating Date/Time 08/27/2017 14:14:47
--- NOTE | 2017-08-28 18:08 | MR ---
cc: NADIRA TRENT DATE: 08/26/2017 INDICATION Atrial fibrillation. PROCEDURE PERFORMED DC cardioversion. PROCEDURE: After the patient was sedated by anesthesia, 200 joules biphasic shock was delivered and converted the patient to sinus rhythm. The patient remained stable and was discharged home in stable condition. DIAGNOSIS Successful cardioversion of atrial fibrillation. DISPOSITION Mr. Last will continue his current medical program including anticoagulation with Eliquis. I will see him back for followup in our office after discharge. MD ADOLFO Snow/zack /1:05 PM /5:52 PM MTDD
== END 2017-08-26 14:35 | disposition home or self-care (01) ==
LOC: HDOC 10:06 → HDIC 10:06 → HDOC 14:35
PROVIDERS: ATTEND Internal Medicine Interventional Cardiology
DX: I48.91 Unspecified atrial fibrillation (principal); R94.31 Abnormal electrocardiogram [ECG] [EKG]
CPT/HCPCS: 92960; 93005